=== PATIENT | male | born 1940 | race Caucasian/White ===

== ENCOUNTER 2021-10-24 10:39 | Day surgery (SDC) | payer MEDICARE, OTHER ==
[2021-10-20 15:04] LABS: CLARITY,URINE CLEAR (Clear); COLOR,URINE YELLOW (Yellow); GLUCOSE, URINE NEGATIVE (Neg); KETONES,URINE NEGATIVE (Neg); LEUKOCYTE ESTERASE ,URINE NEGATIVE (Neg); NITRITES, URINE NEGATIVE (Neg); OCCULT BLOOD,URINE NEGATIVE (Neg); PROTEIN,URINE NEGATIVE (Neg); UROBILINOGEN,URINE 0.2 E.U/dL (0.2-1.0)
[2021-10-20 15:05] LABS: BASOPHILS # (AUTO) 0.1 X10'3 (0-0.2); BASOPHILS % (AUTO) 1.3 % (0-1); EOSINOPHILS # (AUTO) 0.3 X10'3 (0-0.9); EOSINOPHILS % (AUTO) 4.4 % (0-6); LYMPHOCYTES % (AUTO) 16.1 % (21-51); MEAN CORPUSCULAR HGB CONC 33.4 g/dL (33.0-36.5); MEAN CORPUSCULAR VOLUME 98.8 FL (78-98); MEAN PLATELET VOLUME 8.8 FL (7.4-10.4); MONOCYTES # (AUTO) 0.5 X10'3 (0-0.9); MONOCYTES % (AUTO) 8.5 % (2-12); NEUTROPHILS # (AUTO) 4.2 X10'3 (1.8-7.7); NEUTROPHILS % (AUTO) 69.7 % (42-75); PRE OP PLATELET COUNT 176 X10'3 (140-440); RED BLOOD COUNT 2.98 X10'6 (4.70-6.10); RED CELL DISTRIBUTION WIDTH 11.9 % (11.5-14.5)
[2021-10-20 15:07] LABS: UA COLLECTION TYPE CLN CATCH MIDSTREAM
[2021-10-20 15:10] LABS: PRE OP HEMATOCRIT 29.4 % (42.0-52.0); PRE OP HEMOGLOBIN 9.8 g/dL (14.0-17.9)
[2021-10-20 15:23] LABS: ALBUMIN 3.7 G/DL (3.4-5.0); ALBUMIN/GLOBULIN RATIO 1.2 (1.1-1.5); ALKALINE PHOSPHATASE 98 IU/L (46-116); BLOOD UREA NITROGEN 39 MG/DL (7-18); BUN/CREATININE RATIO 23.1 (5.4-32.0); CALCIUM 8.7 MG/DL (8.5-10.1); CHLORIDE 105 MMOL/L (99-107); CREATININE 1.69 MG/DL (0.60-1.10); PRE OP ALT 24 U/L (30-65); PRE OP ANION GAP 5 (8-16); PRE OP AST 21 U/L (10-37); PRE OP BILIRUB, TOTAL 0.5 MG/DL (0.0-1.0); PRE OP GLUCOSE 82 MG/DL (70-104); PRE OP POTASSIUM 4.2 MMOL/L (3.4-5.1); PRE OP SODIUM 145 MMOL/L (135-145); TOTAL CARBON DIOXIDE 34.6 MMOL/L (24-32); TOTAL PROTEIN 6.7 G/DL (6.4-8.2); eGFR 39 ML/MIN
[~2021-10-24] VITALS: Ht 182.9 cm; Wt 70.6 kg
[2021-10-24] VITALS (8 sets, daily range): BP systolic 113–143; BP diastolic 60–81
[~2021-10-24 10:39] MED LIST: ALPR0.5T9 PO; BACL20TA PO; CARB-17 PO; POTASSIUM PO; PRAM0.5T12; SIMV5TAB58 PO; TORS20TA3 PO; cefazolin/dext.iso 2gm/50ml IV ONE; famotidine 20mg tablet PO ONE; ringers solution, lacted 1,000 ML IV SCH
[2021-10-24] MEDS ORDERED: hydrALAZINE 20mg/ml inj. IV PRN (13:25)
[2021-10-24] MEDS ORDERED: ondansetron/PF 4mg/2ml inj IV PRN (13:25)
[2021-10-24] MEDS ORDERED: morphine 2 MG/ML inj. syringe IV PRN (13:25)
[2021-10-24] MEDS ORDERED: labetalol 20mg/4ml (5mg/ml) syringe IV PRN (13:25)
[2021-10-24] MEDS ORDERED: ringers solution, lacted 1,000 ML IV SCH (13:25)
[2021-10-24] MEDS ORDERED: fentaNYL/PF 50MCG/1 ML 2ML syringe IV PRN ×2 (13:25)
[2021-10-24] MEDS ORDERED: morphine 4 MG/ML inj SYRINge IV PRN (13:25)
[2021-10-24] MEDS ORDERED: ROPIVAcaine 0.5% (5mg/ml) 30ml vial ONE ×2 (13:41→13:44)
[2021-10-24] MEDS ORDERED: etomidate 2mg/ml inj. ONE (13:41)
[2021-10-24] MEDS ORDERED: FENTANYL CITRATE/PF 50 MCG/1 ML VIAL ONE (13:42)
[2021-10-24] MEDS ORDERED: midazolam 1 mg/ML 2ml injection ONE (13:43)
[2021-10-24] MEDS ORDERED: bacitracin 15gm ointment TP ONE (13:57)
[2021-10-24] MEDS ORDERED: BUPIVAcaine 0.5% inj/PF 30 ML ONE (13:59)
[2021-10-24] MEDS ORDERED: ondansetron/PF 4mg/2ml inj ONE (14:15)
[2021-10-24] MEDS ORDERED: ePHEDrine 50MG/ML INJ. ONE (14:20)
--- NOTE | 2021-10-24 15:26 | NUR ---
Received from OR via , accompanied by Anesthesiologist DR RIVERA and report given by Anesthesiolgist. AWAKENS TO VOICE. VITALS STABLE DRESSING DI. FELIPE PAIN. RLU ELEVATED. TOES WARM AND PINK.
--- NOTE | 2021-10-24 16:56 | NUR ---
AWAKE AND ORIENTED. VITALS STABLE. DRESSING DI. FELIPE PAIN. HOME WITH HIS AT THIS TIME.
== END 2021-10-24 16:56 | disposition home or self-care (01) ==
LOC: PAS 10:39
PROVIDERS: ATTEND Podiatrist Foot & Ankle Surgery
DX: M20.11 Hallux valgus (acquired), right foot (principal); M20.21 Hallux rigidus, right foot; M19.071 Primary osteoarthritis, right ankle and foot; G89.18 Other acute postprocedural pain; G47.30 Sleep apnea, unspecified; I12.9 Hypertensive chronic kidney disease with stage 1 through stage 4 chronic kidney disease, or unspecified chronic kidney disease; N18.9 Chronic kidney disease, unspecified; Z20.822 Contact with and (suspected) exposure to COVID-19; Z88.2 Allergy status to sulfonamides; Z88.8 Allergy status to other drugs, medicaments and biological substances; Z79.899 Other long term (current) drug therapy; Z98.890 Other specified postprocedural states
CPT/HCPCS: 28750; 36415; 64447; 64450; 73620; 76000; 80053; 81003; 82948; 85025; A6223; C1713; J2250; J2405; J2795; J3010; J3490; J7030; J7120; S0020; U0003; U0005; Z7506; Z7508; Z7512; A4215; A4618; A6449; A7000

== ENCOUNTER 2022-06-15 06:22 | Day surgery (SDC) | payer MEDICARE, OTHER ==
[~2022-06-15] VITALS: Ht 182.9 cm; Wt 74.0 kg
[2022-06-15] VITALS (11 sets, daily range): BP systolic 109–171; BP diastolic 55–96
[~2022-06-15 06:22] MED LIST changes: -cefazolin/dext.iso 2gm/50ml IV ONE; -famotidine 20mg tablet PO ONE; -ringers solution, lacted 1,000 ML IV SCH
[2022-06-15] MEDS ORDERED: normal saline 1,000 ML IV SCH (07:00)
[2022-06-15] MEDS ORDERED: diphenhydrAMINE 25mg capsule PO PRN (07:00)
[2022-06-15] MEDS ORDERED: LOPE2TAB23 PO (07:21)
[2022-06-15] MEDS ORDERED: PNV1TABL7 PO (07:25)
[2022-06-15] MEDS ORDERED: SIME125C77 (07:25)
[2022-06-15] MEDS ORDERED: VITAMIN B12 (07:25)
[2022-06-15] MEDS ORDERED: POTASSIUM PO (07:25)
[2022-06-15] MEDS ORDERED: TETR15DR26 OP (07:25)
[2022-06-15 07:41] LABS: BASOPHILS # (AUTO) 0.1 X10'3 (0-0.2); EOSINOPHILS # (AUTO) 0.3 X10'3 (0-0.9); EOSINOPHILS % (AUTO) 5.7 % (0-6); HEMATOCRIT 30.2 % (42.0-52.0); HEMOGLOBIN 10.3 g/dl (14.0-17.9); LYMPHOCYTES # (AUTO) 1.2 X10'3 (1.1-4.8); LYMPHOCYTES % (AUTO) 20.2 % (21-51); MEAN CORPUSCULAR HEMOGLOBIN 33.1 PG (27.0-31.0); MEAN CORPUSCULAR HGB CONC 34.1 g/dL (33.0-36.5); MEAN CORPUSCULAR VOLUME 97.2 FL (78-98); MEAN PLATELET VOLUME 8.4 FL (7.4-10.4); MONOCYTES # (AUTO) 0.5 X10'3 (0-0.9); MONOCYTES % (AUTO) 8.1 % (2-12); NEUTROPHILS # (AUTO) 3.9 X10'3 (1.8-7.7); PLATELET COUNT 162 X10'3 (140-440); RED BLOOD COUNT 3.11 X10'6 (4.70-6.10); RED CELL DISTRIBUTION WIDTH 12.3 % (11.5-14.5)
[2022-06-15 07:51] LABS: ALBUMIN 3.7 G/DL (3.4-5.0); ANION GAP 8 (8-16); BLOOD UREA NITROGEN 34 MG/DL (7-18); BUN/CREATININE RATIO 26.2 (5.4-32.0); CALCIUM 8.7 MG/DL (8.5-10.1); CHLORIDE 105 MMOL/L (99-107); GLUCOSE 97 MG/DL (70-104); MAGNESIUM 2.4 MG/DL (1.5-2.4); POTASSIUM 4.1 MMOL/L (3.5-5.1); SODIUM 143 MMOL/L (135-145); TOTAL CARBON DIOXIDE 29.7 MMOL/L (24-32); eGFR 53 ML/MIN
[2022-06-15] MEDS ORDERED: nitroGLYCERIN-Tridil 50MG/D5W 0 ML IV ONE (08:02)
[2022-06-15] MEDS ORDERED: midazolam 1 mg/ML 2ml injection ONE ×2 (08:02→09:29)
[2022-06-15] MEDS ORDERED: verapamil 2.5 mg/ml inj IV ONE (08:02)
[2022-06-15] MEDS ORDERED: fentaNYL/PF 50MCG/1 ML 2ML syringe ONE (08:03)
[2022-06-15] MEDS ORDERED: LIDOcaine 1% 30ml preserv. free vial ONE (08:03)
[2022-06-15] MEDS ORDERED: heparin 1,000unit/ml 10ml vial 10 ML ONE (08:03)
[2022-06-15] MEDS ORDERED: iohexol 350 MG/ML 50ML vial IV ONE (08:03)
[2022-06-15] MEDS ORDERED: iohexol 350MG/ML 100ml bottle IV ONE (08:03)
[2022-06-15] MEDS ORDERED: sodium bicarbonate (8.4%) inj. 150 ML in dextrose 5%-water 1,000 ML IV ONE (08:10)
[2022-06-15] MEDS ORDERED: normal saline 1000ml 1,000 ML IV SCH (11:30)
[2022-06-15] MEDS ORDERED: HYDROcodone/acetaminophen 10/325mg tab PO PRN (11:35)
[2022-06-15] MEDS ORDERED: HYDROcodone/acetaminophen 5mg/325mg tablet PO PRN (11:35)
[2022-06-15] MEDS ORDERED: OXAZEpam 15mg capsule PO PRN (11:35)
== END 2022-06-15 14:35 | disposition home or self-care (01) ==
LOC: SSTAY O 06:22
PROVIDERS: ATTEND Internal Medicine Cardiovascular Disease
DX: I25.10 Atherosclerotic heart disease of native coronary artery without angina pectoris (principal); I35.0 Nonrheumatic aortic (valve) stenosis; I45.10 Unspecified right bundle-branch block; I10 Essential (primary) hypertension; E78.5 Hyperlipidemia, unspecified; I27.20 Pulmonary hypertension, unspecified; G35 Multiple sclerosis; G47.30 Sleep apnea, unspecified; Z98.890 Other specified postprocedural states; Z79.899 Other long term (current) drug therapy; Z82.49 Family history of ischemic heart disease and other diseases of the circulatory system
CPT/HCPCS: 36415; 80048; 83735; 85025; 85610; 93005; 93460; 99152; 99153; C1751; C1760; C1769; C1894; J1644; J2250; J3010; J3490; J7030; J7070; Q0163; Q9967; A4615; A5120; A6258

== ENCOUNTER 2022-07-03 11:03 | Outpatient (CLI) | payer MEDICARE, OTHER ==
[~2022-07-03 11:03] MED LIST changes: +LOPE2TAB23 PO; +PNV1TABL7 PO; +SIME125C77; +TETR15DR26 OP; -TORS20TA3 PO; +VITAMIN B12
[2022-07-03 11:35] LABS: BASOPHILS % (AUTO) 0.5 % (0-1); EOSINOPHILS # (AUTO) 0.3 X10'3 (0-0.9); EOSINOPHILS % (AUTO) 4.2 % (0-6); HEMATOCRIT 31.4 % (42.0-52.0); HEMOGLOBIN 10.7 g/dl (14.0-17.9); LYMPHOCYTES # (AUTO) 0.6 X10'3 (1.1-4.8); LYMPHOCYTES % (AUTO) 9.7 % (21-51); MEAN CORPUSCULAR HEMOGLOBIN 33.3 PG (27.0-31.0); MEAN CORPUSCULAR VOLUME 97.8 FL (78-98); MEAN PLATELET VOLUME 8.5 FL (7.4-10.4); MONOCYTES # (AUTO) 0.4 X10'3 (0-0.9); MONOCYTES % (AUTO) 6.7 % (2-12); NEUTROPHILS # (AUTO) 4.7 X10'3 (1.8-7.7); NEUTROPHILS % (AUTO) 78.9 % (42-75); PLATELET COUNT 160 X10'3 (140-440); RED BLOOD COUNT 3.21 X10'6 (4.70-6.10); RED CELL DISTRIBUTION WIDTH 12.6 % (11.5-14.5); WHITE BLOOD COUNT 5.9 X10'3 (4.5-11.0)
[2022-07-03 11:48] LABS: APTT 27 SECONDS (22-32)
[2022-07-03 12:20] LABS: ALANINE AMINOTRANSFERASE 29 U/L (12-78); ALBUMIN 3.7 G/DL (3.4-5.0); ALBUMIN/GLOBULIN RATIO 1.3 (1.1-1.5); ALKALINE PHOSPHATASE 116 IU/L (46-116); ANION GAP 6 (8-16); ASPARTATE AMINO TRANSFERASE 29 U/L (10-37); BILIRUBIN,TOTAL 0.7 MG/DL (0.1-1.0); BLOOD UREA NITROGEN 37 MG/DL (7-18); CHLORIDE 107 MMOL/L (99-107); CREATININE 1.32 MG/DL (0.60-1.10); GLUCOSE 86 MG/DL (70-104); POTASSIUM 4.8 MMOL/L (3.5-5.1); SODIUM 144 MMOL/L (135-145); TOTAL CARBON DIOXIDE 31.1 MMOL/L (24-32); TOTAL PROTEIN 6.5 G/DL (6.4-8.2); eGFR 52 ML/MIN
[2022-07-03] MEDS ORDERED: IODIXANOL 320 MG/ML INFUS..BTL 100ML IV ONE (12:52)
== END 2022-07-03 23:59 | disposition home or self-care (01) ==
LOC: RAD 11:03
PROVIDERS: ATTEND Internal Medicine Cardiovascular Disease
DX: Z01.818 Encounter for other preprocedural examination (principal); I65.23 Occlusion and stenosis of bilateral carotid arteries; I70.0 Atherosclerosis of aorta; R16.0 Hepatomegaly, not elsewhere classified; K80.20 Calculus of gallbladder without cholecystitis without obstruction; K44.9 Diaphragmatic hernia without obstruction or gangrene; I51.7 Cardiomegaly; N40.0 Benign prostatic hyperplasia without lower urinary tract symptoms; M41.85 Other forms of scoliosis, thoracolumbar region; N28.1 Cyst of kidney, acquired; M46.04 Spinal enthesopathy, thoracic region; G20 Parkinson's disease; G35 Multiple sclerosis; I35.0 Nonrheumatic aortic (valve) stenosis; Z87.891 Personal history of nicotine dependence; Z79.899 Other long term (current) drug therapy
CPT/HCPCS: 36415; 71046; 71275; 74174; 80053; 85025; 85610; 85730; 93005; 93880; 94010; 94727; 94729; J3490; Q9967

== ENCOUNTER 2022-08-27 07:43 | Inpatient (IN) | payer MEDICARE, OTHER ==
[2022-08-21 13:50] LABS: CLARITY,URINE CLEAR (Clear); COLOR,URINE STRAW (Yellow); GLUCOSE, URINE NEGATIVE (Neg); KETONES,URINE NEGATIVE (Neg); LEUKOCYTE ESTERASE ,URINE SMALL (Neg); NITRITES, URINE NEGATIVE (Neg); OCCULT BLOOD,URINE NEGATIVE (Neg); PH,URINE 5.5 (4.8-8.0); PROTEIN,URINE NEGATIVE (Neg); UROBILINOGEN,URINE 0.2 E.U/dL (0.2-1.0)
[2022-08-21 14:13] LABS: UA COLLECTION TYPE NON-SPECIFIED
[2022-08-21 14:18] LABS: BACTERIA,URINE FEW /HPF (Neg); HYALINE CASTS 0-3 /LPF (NEGATIVE); MUCUS STRANDS NONE SEEN /LPF (Neg); RBC,URINE 0-2 /HPF (0-2); SQUAMOUS EPITHELIAL CELL,UR NONE SEEN /LPF (FEW)
[2022-08-21 14:33] LABS: BASOPHILS # (AUTO) 0.1 X10'3 (0-0.2); BASOPHILS % (AUTO) 1.1 % (0-1); EOSINOPHILS # (AUTO) 0.3 X10'3 (0-0.9); EOSINOPHILS % (AUTO) 4.8 % (0-6); LYMPHOCYTES # (AUTO) 0.9 X10'3 (1.1-4.8); LYMPHOCYTES % (AUTO) 14.9 % (21-51); MEAN CORPUSCULAR HEMOGLOBIN 33.2 PG (27.0-31.0); MEAN CORPUSCULAR HGB CONC 33.4 g/dL (33.0-36.5); MEAN CORPUSCULAR VOLUME 99.5 FL (78-98); MEAN PLATELET VOLUME 8.2 FL (7.4-10.4); MONOCYTES # (AUTO) 0.5 X10'3 (0-0.9); MONOCYTES % (AUTO) 7.3 % (2-12); NEUTROPHILS # (AUTO) 4.6 X10'3 (1.8-7.7); NEUTROPHILS % (AUTO) 71.9 % (42-75); PRE OP HEMATOCRIT 32.4 % (42.0-52.0); PRE OP PLATELET COUNT 190 X10'3 (140-440); RED BLOOD COUNT 3.25 X10'6 (4.70-6.10); RED CELL DISTRIBUTION WIDTH 12.7 % (11.5-14.5)
[2022-08-21 14:34] LABS: PRE OP PROTIME 10.3 SECONDS (9.0-12.0)
[2022-08-21 14:35] LABS: PRE OP HEMOGLOBIN 10.8 g/dL (14.0-17.9)
[2022-08-21 14:36] LABS: ALBUMIN/GLOBULIN RATIO 1.4 (1.1-1.5); ALKALINE PHOSPHATASE 92 IU/L (46-116); BLOOD UREA NITROGEN 39 MG/DL (7-18); BUN/CREATININE RATIO 28.1 (5.4-32.0); CALCIUM 8.8 MG/DL (8.5-10.1); CHLORIDE 103 MMOL/L (99-107); CREATININE 1.39 MG/DL (0.60-1.10); PRE OP ALT 27 U/L (30-65); PRE OP ANION GAP 6 (8-16); PRE OP AST 40 U/L (10-37); PRE OP BILIRUB, TOTAL 0.4 MG/DL (0.0-1.0); PRE OP GLUCOSE 94 MG/DL (70-104); PRE OP POTASSIUM 4.7 MMOL/L (3.4-5.1); PRE OP SODIUM 141 MMOL/L (135-145); TOTAL CARBON DIOXIDE 32.4 MMOL/L (24-32); TOTAL PROTEIN 6.8 G/DL (6.4-8.2); eGFR 49 ML/MIN
[2022-08-27] VITALS (29 sets, daily range): BP systolic 97–176; BP diastolic 55–107
[~2022-08-27] VITALS: Ht 167.6 cm; Wt 70.3 kg
[2022-08-27] MEDS: nitroPRUSSIDE (NIPRIDE) (200MCG/ML) 100ML Drip IV SCH (05:30)
[2022-08-27] MEDS: phenylephrine inj 50 MG in normal saline 250ml IV solN IV SCH (05:30)
[~2022-08-27 07:43] MED LIST changes: +CYAN100T39 PO; +POTA99TA26 PO; -POTASSIUM PO; -PRAM0.5T12; +PRAM0.5T12 PO; -SIME125C77; +SIME125C77 PO; +TETR15DR26 EACHEYE; -TETR15DR26 OP; -VITAMIN B12; +aspirin 325mg tablet PO ONE; +ceFAZolin inj. 2,000 MG in dextrose 5%-water 100 ML IV ONE; +famotidine 20mg tablet PO ONE; +ondansetron/PF 4mg/2ml inj IV PRN; +protamine sulfate 10mg/ml inj. ONE; +ringers solution, lacted 1,000 ML IV SCH; +vancomycin 1,500 MG in NS 300ml IV soln IV ONE
[2022-08-27] MEDS ORDERED: iohexol 350 MG/ML 50ML vial IV ONE ×2 (10:34→11:58)
[2022-08-27] MEDS ORDERED: verapamil 2.5 mg/ml inj IV ONE (10:34)
[2022-08-27] MEDS ORDERED: heparin 1,000unit/ml 10ml vial 0 ML ONE (10:34)
[2022-08-27] MEDS ORDERED: iohexol 350MG/ML 100ml bottle IV ONE (10:34)
[2022-08-27] MEDS ORDERED: nitroGLYCERIN-Tridil 50MG/D5W 0 ML IV ONE (10:35)
[2022-08-27] MEDS ORDERED: heparin 1,000 UNITS/NS 500ml 1,500 ML ONE (10:35)
[2022-08-27] MEDS ORDERED: LIDOcaine 1% 30ml preserv. free vial ONE (10:36)
[2022-08-27] MEDS ORDERED: fentaNYL/PF 50MCG/1 ML 2ML syringe ONE (10:51)
[2022-08-27] MEDS ORDERED: midazolam 1 mg/ML 2ml injection ONE (10:51)
[2022-08-27] MEDS ORDERED: ALPRAZolam 0.5mg tablet PO PRN (11:10)
[2022-08-27] MEDS ORDERED: propofol inj 20 ML IV ONE ×2 (11:10)
[2022-08-27] MEDS ORDERED: SIMETHICONE 125 MG CAPSULE PO PRN (11:10)
[2022-08-27] MEDS ORDERED: loperamide 2mg capsule PO PRN (11:15)
[2022-08-27] MEDS ORDERED: heparin 1,000unit/ml 10ml vial 10 ML ONE (12:39)
[2022-08-27] MEDS ORDERED: ondansetron/PF 4mg/2ml inj IV PRN ×2 (12:40→13:00)
[2022-08-27] MEDS ORDERED: hydrALAZINE 20mg/ml inj. IV PRN ×2 (12:40→13:00)
[2022-08-27] MEDS ORDERED: acetaminophen 1,000mg/100ml IV 100 ML IV PRN (12:40)
[2022-08-27] MEDS ORDERED: labetalol 20mg/4ml (5mg/ml) syringe IV PRN ×2 (12:40→13:00)
[2022-08-27] MEDS ORDERED: meperidine/PF 25mg/ml syringe IV PRN (12:40)
[2022-08-27] MEDS ORDERED: ringers solution, lacted 1,000 ML IV SCH (12:40)
[2022-08-27] MEDS ORDERED: morphine 2 MG/ML inj. syringe IV PRN (12:40)
[2022-08-27] MEDS ORDERED: HYDROmorphone/PF 0.2 MG/ML SYRINGE IV PRN (12:40)
--- NOTE | 2022-08-27 12:59 | NUR ---
Received from OR via HOSPITAL BED , accompanied by Anesthesiologist DR KUMARI and report given by Anesthesiolgist. PT PRESENTS WITH PIV 20G RIGHT AC, ART LINE LEFT WRIST, RADIAL STOP RIGHT WRIST. PT HAS ORAL AIRWAY IN, MASK 10L, VSS. NEURO CHECK INTACT. DISTAL PULSES BILATERAL PEDAL AND TIBIAL FOUND WITH DOPLER. VSS. Addendum: 08/27/22 at 1334 by Juany Sy RN, RN Amended: Links added.
[2022-08-27] MEDS ORDERED: potassium Cl 40MEQ/270ML bag 250 ML IV PRN (13:00)
[2022-08-27] MEDS ORDERED: potassium CL 10mEq/100ml bag 100 ML IV PRN (13:00)
[2022-08-27] MEDS ORDERED: proCHLORperazine 10 MG/2 ml inj IV PRN (13:00)
[2022-08-27] MEDS ORDERED: docusate sod 100mg capsule PO PRN (13:00)
[2022-08-27] MEDS ORDERED: diphenhydrAMINE 25mg capsule PO PRN (13:00)
[2022-08-27] MEDS ORDERED: pantoprazole 40mg Tablet.DR PO PRN (13:00)
[2022-08-27] MEDS ORDERED: magnesium 2GM in 50ml NS 50 ML IV PRN (13:00)
[2022-08-27] MEDS ORDERED: potassium Cl 20mEq/100mL bag 100 ML IV PRN (13:00)
[2022-08-27] MEDS ORDERED: potassium Cl 40MEQ/1/2NS 520ml 520 ML IV PRN (13:00)
[2022-08-27] MEDS ORDERED: magnesium 4gm in 100ml NS 100 ML IV PRN (13:00)
[2022-08-27] MEDS ORDERED: potassium Cl 20 mEq SR tablet PO PRN (13:00)
--- NOTE | 2022-08-27 13:10 | NUR ---
ORAL AIRWAY REMOVED, PT SPO2 100, 10L MASK. SPO2 TURNED DOWN TO 6L MASK 100%. Addendum: 08/27/22 at 1334 by Juany Sy RN, RN Amended: Links added.
--- NOTE | 2022-08-27 13:25 | NUR ---
PT HAS BILATERAL LOWER EXTREMITY 3+ PITTING EDEMA.
--- NOTE | 2022-08-27 13:34 | NUR ---
AFTER INSPECTION OF ART LINE, I NOTICED BLOOD LEAKING AROUND THE CATHETER AND OPT HAD A HEMATOMA. ART LINE REMOVED PRESURE HELD FOR 5 MINUTES. 2X2 WITH COBAN PLACED. Addendum: 08/27/22 at 1335 by Juany Sy RN, RN Amended: Links added.
--- NOTE | 2022-08-27 13:34 | NUR ---
DR CAMPOVERDE AT BEDSIDE. Addendum: 08/27/22 at 1336 by Juany Guerrero - JAYMIE RN Amended: Links added.
--- NOTE | 2022-08-27 13:37 | NUR ---
POST TAVR EKG, LANE AT BEDSIDE.
[2022-08-27] MEDS: normal saline 1000ml 1,000 ML IV SCH ×2 (13:53→23:00)
--- NOTE | 2022-08-27 15:23 | NUR ---
PT HAS RIGHT WRIST RADIAL STOP. PER [employer] TEST TECHNICIAN AFTER 1ST HOUR REMOVE 3MLS OF AIR. THEN EVERY 15 MINUTES REMOVE 3 MLS OF AIR UNTIL RADIAL STOP IS REMOVED. RADIAL STOP REMOVED WITH NO SIGNS OF BLEEDING. RIGHT WRIST 2X2 PLACED WITH COBAN.
[2022-08-27] MEDS: ceFAZolin 1GM/D5W- ADD-VANTAGE 50 ML IV SCH (15:28)
[2022-08-27] MEDS: pramipexole 0.25mg tablet PO SCH ×2 (15:28→21:11)
--- NOTE | 2022-08-27 16:09 | NUR ---
Report called to receiving nurse CAITLIN COON. PT Transferred via HOSPITAL BED TO ROOM 3013A WITH PT . PT BED IN LOW LOCKED POSITION WITH CALL LIGHT IN REACH. PT HOOKED UP TO DESIREE BARGER. PT GLASSES AND TWO PT Belongings BAGS. SPecial Issues communicated to receiving nurse. Addendum: 08/27/22 at 1615 by Juany Sy RN, RN Amended: Links added.
[2022-08-27] MEDS: sod chloride 0.9% 10ml flush syringe IV SCH (16:30)
[2022-08-27] MEDS: acetaminophen 325mg tablet PO PRN (16:45)
[2022-08-27] MEDS: ALPRAZolam 0.25mg tablet PO PRN (16:45)
[2022-08-27] MEDS: PNV NO.63/IRON,CARBONYL/FA/DHA 1 EACH CAPSULE PO SCH (20:00)
[2022-08-27] MEDS: SIMVASTATIN 5 MG PO SCH (21:00)
[2022-08-27] MEDS: baclofen 10mg tablet PO SCH (21:11)
[2022-08-27] MEDS: vancomycin/NS 1 GM ADD-VANTAGE 250 ML IV SCH (21:12)
[2022-08-28] VITALS (7 sets, daily range): BP systolic 110–142; BP diastolic 56–74
[2022-08-28] MEDS: nitroPRUSSIDE (NIPRIDE) (200MCG/ML) 100ML Drip IV SCH (00:28)
[2022-08-28] MEDS: ceFAZolin 1GM/D5W- ADD-VANTAGE 50 ML IV SCH ×2 (01:06→08:00)
[2022-08-28] MEDS: phenylephrine inj 50 MG in normal saline 250ml IV solN IV SCH (03:38)
[2022-08-28 06:16] LABS: BASOPHILS % (AUTO) 0.4 % (0-1); EOSINOPHILS % (AUTO) 0 % (0-6); HEMATOCRIT 31.9 % (42.0-52.0); HEMOGLOBIN 10.5 g/dl (14.0-17.9); LYMPHOCYTES # (AUTO) 0.3 X10'3 (1.1-4.8); LYMPHOCYTES % (AUTO) 2.6 % (21-51); MEAN CORPUSCULAR HEMOGLOBIN 32.9 PG (27.0-31.0); MEAN CORPUSCULAR HGB CONC 33.1 g/dL (33.0-36.5); MEAN CORPUSCULAR VOLUME 99.6 FL (78-98); MEAN PLATELET VOLUME 8.3 FL (7.4-10.4); MONOCYTES # (AUTO) 0.9 X10'3 (0-0.9); MONOCYTES % (AUTO) 7.7 % (2-12); NEUTROPHILS # (AUTO) 10.6 X10'3 (1.8-7.7); NEUTROPHILS % (AUTO) 89.3 % (42-75); PLATELET COUNT 150 X10'3 (140-440); RED CELL DISTRIBUTION WIDTH 12.8 % (11.5-14.5); WHITE BLOOD COUNT 11.9 X10'3 (4.5-11.0)
[2022-08-28 06:39] LABS: ALANINE AMINOTRANSFERASE 51 U/L (12-78); ALBUMIN 3.7 G/DL (3.4-5.0); ALBUMIN/GLOBULIN RATIO 1.3 (1.1-1.5); ALKALINE PHOSPHATASE 92 IU/L (46-116); ANION GAP 9 (8-16); ASPARTATE AMINO TRANSFERASE 46 U/L (10-37); BILIRUBIN,TOTAL 0.6 MG/DL (0.1-1.0); BLOOD UREA NITROGEN 32 MG/DL (7-18); BUN/CREATININE RATIO 20.3 (5.4-32.0); CALCIUM 8.7 MG/DL (8.5-10.1); CHLORIDE 103 MMOL/L (99-107); CREATININE 1.58 MG/DL (0.60-1.10); GLUCOSE 148 MG/DL (70-104); MAGNESIUM 2.2 MG/DL (1.5-2.4); POTASSIUM 4.5 MMOL/L (3.5-5.1); SODIUM 142 MMOL/L (135-145); TOTAL CARBON DIOXIDE 29.9 MMOL/L (24-32); TOTAL PROTEIN 6.5 G/DL (6.4-8.2); eGFR 42 ML/MIN
[2022-08-28] MEDS: vancomycin/NS 1 GM ADD-VANTAGE 250 ML IV SCH (08:00)
[2022-08-28] MEDS: PEG OP SCH (08:00)
[2022-08-28] MEDS: sod chloride 0.9% 10ml flush syringe IV SCH ×4 (08:00→23:03)
[2022-08-28] MEDS: DEXT OP SCH (08:00)
[2022-08-28] MEDS: [UNRECOGNIZED DRUG - OTHER] OP SCH (08:00)
[2022-08-28] MEDS: TETRAHYDRZ OP SCH (08:00)
[2022-08-28] MEDS: POTASSIUM GLUCONATE 99 MG PO SCH (08:00)
[2022-08-28] MEDS: PNV NO.63/IRON,CARBONYL/FA/DHA 1 EACH CAPSULE PO SCH ×2 (08:00→19:42)
[2022-08-28] MEDS: pramipexole 0.25mg tablet PO SCH ×3 (08:06→19:42)
[2022-08-28] MEDS: baclofen 10mg tablet PO SCH ×2 (08:06→19:43)
[2022-08-28] MEDS: normal saline 1000ml 1,000 ML IV SCH ×2 (09:00→19:00)
[2022-08-28] MEDS ORDERED: simethicone 125mg capsule PO PRN (09:23)
[2022-08-28] MEDS ORDERED: ASPI-1265 PO (10:07)
[2022-08-28] MEDS: SIMVASTATIN 5 MG PO SCH (19:57)
[2022-08-29 02:00] VITALS: BP 137/74
[2022-08-29] MEDS: normal saline 1000ml 1,000 ML IV SCH ×2 (05:00→15:00)
[2022-08-29 07:23] VITALS: BP 130/75
[2022-08-29] MEDS: sod chloride 0.9% 10ml flush syringe IV SCH ×3 (08:00→23:26)
[2022-08-29] MEDS: DEXT OP SCH (08:00)
[2022-08-29] MEDS: [UNRECOGNIZED DRUG - OTHER] OP SCH (08:00)
[2022-08-29] MEDS: TETRAHYDRZ OP SCH (08:00)
[2022-08-29] MEDS: PEG OP SCH (08:00)
[2022-08-29] MEDS: POTASSIUM GLUCONATE 99 MG PO SCH (08:00)
[2022-08-29] MEDS: baclofen 10mg tablet PO SCH ×2 (08:34→20:02)
[2022-08-29] MEDS: pramipexole 0.25mg tablet PO SCH ×3 (08:34→20:02)
[2022-08-29] MEDS: PNV NO.63/IRON,CARBONYL/FA/DHA 1 EACH CAPSULE PO SCH ×2 (08:38→20:01)
[2022-08-29] MEDS ORDERED: PERFLUTREN PROTEIN-A MICROSPHR (Optison) 0.22 MG/ML 3ML VIAL IV ONE (09:50)
[2022-08-29 11:30] VITALS: BP 145/80
--- NOTE | 2022-08-29 11:56 | NUR ---
Pt received an echo and the results show slightly increased pericardial effusion. Both MD and cardio suggest holding pt another day and repeating echo tomorrow morning. If results are good plan for DC then.
[2022-08-29 15:09] VITALS: BP 119/73
[2022-08-29 18:00] VITALS: BP 115/67
[2022-08-29] MEDS: SIMVASTATIN 5 MG PO SCH (20:03)
[2022-08-29 22:00] VITALS: BP 132/65
[2022-08-30] MEDS: normal saline 1000ml 1,000 ML IV SCH ×3 (00:55→21:00)
[2022-08-30] MEDS: ALPRAZolam 0.25mg tablet PO PRN (02:04)
[2022-08-30 02:19] VITALS: BP 154/77
--- NOTE | 2022-08-30 04:44 | NUR ---
I showed the ekg to Dr. Mcneil to review since the telephone station repairer was concerned with the cardiac strip on patient. Dr. Mcneil ER recommended a trop drawn and have a trop done. The pt's nurse is calling for order.
[2022-08-30 07:00] VITALS: BP 145/75
--- NOTE | 2022-08-30 07:14 | NUR ---
Lab came back with a critical value on Troponin at a [address]. I [address] Schaffer's cell phone and left a voicemail to notify. Will continue to monitor patient.
[2022-08-30] MEDS: sod chloride 0.9% 10ml flush syringe IV SCH ×2 (08:00→16:31)
[2022-08-30] MEDS: baclofen 10mg tablet PO SCH ×2 (08:07→20:53)
[2022-08-30] MEDS: PNV NO.63/IRON,CARBONYL/FA/DHA 1 EACH CAPSULE PO SCH ×2 (08:07→20:53)
[2022-08-30] MEDS: pramipexole 0.25mg tablet PO SCH ×3 (08:08→20:53)
[2022-08-30] MEDS ORDERED: LIDOcaine 1% 30ml preserv. free vial ONE (08:38)
[2022-08-30] MEDS ORDERED: midazolam 1 mg/ML 2ml injection ONE (08:38)
[2022-08-30] MEDS ORDERED: fentaNYL/PF 50MCG/1 ML 2ML syringe ONE (08:38)
[2022-08-30] MEDS ORDERED: PERFLUTREN PROTEIN-A MICROSPHR (Optison) 0.22 MG/ML 3ML VIAL IV ONE (10:10)
[2022-08-30 11:00] VITALS: BP 139/62
[2022-08-30 11:16] LABS: TOTAL PROTEIN,BODY FLUID 4.7 G/DL
[2022-08-30 16:07] VITALS: BP 115/55
[2022-08-30 18:00] VITALS: BP 114/48
[2022-08-30] MEDS: acetaminophen 325mg tablet PO PRN (20:53)
[2022-08-30 21:00] VITALS: BP 113/57
[2022-08-31] MEDS: sod chloride 0.9% 10ml flush syringe IV SCH ×2 (00:18→08:22)
[2022-08-31 06:00] VITALS: BP_SYST 124; BP_SYST 150; BP_DIAS 52; BP_DIAS 90
[2022-08-31] MEDS: normal saline 1000ml 1,000 ML IV SCH (07:00)
[2022-08-31] MEDS: baclofen 10mg tablet PO SCH (08:18)
[2022-08-31] MEDS: pramipexole 0.25mg tablet PO SCH ×2 (08:18→13:11)
[2022-08-31] MEDS: PNV NO.63/IRON,CARBONYL/FA/DHA 1 EACH CAPSULE PO SCH (08:18)
[2022-08-31 09:17] LABS: BASOPHILS % (AUTO) 0.4 % (0-1); EOSINOPHILS # (AUTO) 0.1 X10'3 (0-0.9); EOSINOPHILS % (AUTO) 1.4 % (0-6); HEMATOCRIT 30.8 % (42.0-52.0); HEMOGLOBIN 10.1 g/dl (14.0-17.9); LYMPHOCYTES # (AUTO) 0.8 X10'3 (1.1-4.8); LYMPHOCYTES % (AUTO) 10.8 % (21-51); MEAN CORPUSCULAR HEMOGLOBIN 33.1 PG (27.0-31.0); MEAN CORPUSCULAR HGB CONC 32.7 g/dL (33.0-36.5); MEAN CORPUSCULAR VOLUME 101.2 FL (78-98); MEAN PLATELET VOLUME 8.7 FL (7.4-10.4); MONOCYTES # (AUTO) 0.4 X10'3 (0-0.9); MONOCYTES % (AUTO) 5.1 % (2-12); NEUTROPHILS # (AUTO) 5.8 X10'3 (1.8-7.7); NEUTROPHILS % (AUTO) 82.3 % (42-75); PLATELET COUNT 92 X10'3 (140-440); RED BLOOD COUNT 3.04 X10'6 (4.70-6.10); RED CELL DISTRIBUTION WIDTH 12.6 % (11.5-14.5); WHITE BLOOD COUNT 7.1 X10'3 (4.5-11.0)
[2022-08-31 09:49] LABS: ALBUMIN 2.7 G/DL (3.4-5.0); ANION GAP 6 (8-16); BLOOD UREA NITROGEN 41 MG/DL (7-18); BUN/CREATININE RATIO 28.1 (5.4-32.0); CALCIUM 8.1 MG/DL (8.5-10.1); CHLORIDE 104 MMOL/L (99-107); CREATININE 1.46 MG/DL (0.60-1.10); GLUCOSE 139 MG/DL (70-104); POTASSIUM 3.5 MMOL/L (3.5-5.1); SODIUM 141 MMOL/L (135-145); TOTAL CARBON DIOXIDE 30.8 MMOL/L (24-32); eGFR 46 ML/MIN
[2022-08-31 10:30] VITALS: BP 106/59
--- NOTE | 2022-08-31 13:24 | NUR ---
Called Sharron, deirdre/c rola rec'd. She will be on her way. Should be here in about 45 min.
[2022-08-31 14:30] VITALS: BP 108/58
--- NOTE | 2022-08-31 16:08 | NUR ---
Pt stable for d/c per md orders. Rev'd all d/c ppwk with patient and his . All questions, comments and questions were answered at this time. Reiterated the importance of dr wasserman. All personal belongings were packed up and sent with patient. Model card with pamphlet was also given to patient. PIV was removed, tele removed - pt tolerated well. Pt was able to get dressed and transfer to w/c with wifes help. Pt was wheeled out by nursing staff to private vehicle.
== END 2022-08-31 15:54 | disposition home or self-care (01) | DRG 266 ==
LOC: PAS IN 07:43 → PCU 3S 16:31
PROVIDERS: ADMIT Internal Medicine Cardiovascular Disease; ATTEND Internal Medicine Cardiovascular Disease
PROC: 027F3ZZ Dilation of Aortic Valve, Percutaneous Approach (ICD-10-PCS; 2022-08-27)
PROC: B41D1ZZ Fluoroscopy of Aorta and Bilateral Lower Extremity Arteries using Low Osmolar Contrast (ICD-10-PCS; 2022-08-27)
PROC: 02RF38Z Replacement of Aortic Valve with Zooplastic Tissue, Percutaneous Approach (ICD-10-PCS; principal; 2022-08-27 10:49)
PROC: 0W9D3ZX Drainage of Pericardial Cavity, Percutaneous Approach, Diagnostic (ICD-10-PCS; 2022-08-30)
DX: I35.0 Nonrheumatic aortic (valve) stenosis (principal); Z00.6 Encounter for examination for normal comparison and control in clinical research program; I50.23 Acute on chronic systolic (congestive) heart failure; I31.39 Other pericardial effusion (noninflammatory); I25.10 Atherosclerotic heart disease of native coronary artery without angina pectoris; E78.5 Hyperlipidemia, unspecified; I11.0 Hypertensive heart disease with heart failure; G47.33 Obstructive sleep apnea (adult) (pediatric); G35 Multiple sclerosis
CPT/HCPCS: 36415; 71045; 71046; 80048; 80053; 81001; 82948; 83615; 83735; 83880; 84157; 84484; 85025; 85347; 85610; 85730; 86885; 86900; 86901; 86920; 87081; 87088; 93005; 93308; A4349; A4615; A4618; A4620; A6258; A6449; G0378; J0690; J1644; J2250; J2370; J2405; J2704; J2720; J3010; J3370; J3490; J7030; J7040; J7050; J7060; J7120; Q0163; Q9967

== ENCOUNTER 2022-09-23 12:59 | Outpatient (CLI) | payer MEDICARE, OTHER ==
[~2022-09-23 12:59] MED LIST changes: +ASPI-1265 PO; -aspirin 325mg tablet PO ONE; -ceFAZolin inj. 2,000 MG in dextrose 5%-water 100 ML IV ONE; -famotidine 20mg tablet PO ONE; -ondansetron/PF 4mg/2ml inj IV PRN; -protamine sulfate 10mg/ml inj. ONE; -ringers solution, lacted 1,000 ML IV SCH; -vancomycin 1,500 MG in NS 300ml IV soln IV ONE
== END 2022-09-23 23:59 | disposition home or self-care (01) ==
LOC: CARD DIAG 12:59
PROVIDERS: ATTEND Internal Medicine Cardiovascular Disease
DX: I08.1 Rheumatic disorders of both mitral and tricuspid valves (principal); Z48.812 Encounter for surgical aftercare following surgery on the circulatory system; Z95.2 Presence of prosthetic heart valve
CPT/HCPCS: 93306

== ENCOUNTER 2022-09-24 11:19 | Outpatient (CLI) | payer MEDICARE, OTHER | END 2022-09-24 23:59 | disposition home or self-care (01) | LOC: TAVR 11:19 | PROVIDERS: ATTEND Internal Medicine Cardiovascular Disease | DX: Z48.812 Encounter for surgical aftercare following surgery on the circulatory system (principal); I35.0 Nonrheumatic aortic (valve) stenosis; I51.7 Cardiomegaly; I45.10 Unspecified right bundle-branch block; Z95.2 Presence of prosthetic heart valve | CPT/HCPCS: 93005 ==

== ENCOUNTER 2024-12-21 21:24 | Inpatient (IN) | payer MEDICARE, OTHER ==
[~2024-12-21] VITALS: Ht 177.8 cm; Wt 58.7 kg
[~2024-12-21 21:24] MED LIST changes: -ASPI-1265 PO
[2024-12-21 23:45] VITALS: BP 114/60; PULSE 70; RESP 14; TEMP 97.2; O2SAT 97
[2024-12-22] VITALS (7 sets, daily range): BP systolic 97–131; BP diastolic 52–78; PULSE 74–94; RESP 16–21; TEMP 97.3–97.6; O2SAT 91–96
[2024-12-22] MEDS ORDERED: magnesium Cl slow-release 64mg tablet PO PRN (01:20)
[2024-12-22] MEDS ORDERED: magnesium sulf-water 4G/100mL 100 ML IV PRN (01:20)
[2024-12-22] MEDS ORDERED: magnesium sulf-water 2g/50mL 50 ML IV PRN (01:20)
[2024-12-22] MEDS ORDERED: potassium Cl 20 mEq SR tablet PO PRN ×2 (01:20)
[2024-12-22] MEDS ORDERED: acetaminophen 325mg tablet PO PRN (01:20)
[2024-12-22] MEDS ORDERED: ondansetron/PF 4mg/2ml inj IV PRN (01:20)
[2024-12-22] MEDS ORDERED: magnesium hydroxide 30ml (MOM) UD suspension PO PRN (01:20)
[2024-12-22] MEDS ORDERED: mag hydrox/Alum hydrox/simeth 30ml oral suspension PO PRN (01:20)
[2024-12-22] MEDS ORDERED: potassium Cl 40MEQ/1/2NS 520ml 520 ML IV PRN (01:20)
[2024-12-22] MEDS: normal saline 1000ml 1,000 ML IV SCH (01:20)
--- NOTE | 2024-12-22 03:09 | HISTORY AND PHYSICAL-Residence ---
History & Physical Providers to CC Resident Creating Document: PRABHJOT THORNTON, RES ~ History of Present Illness Primary Medical Doctor: PCP: Patient does not know Reason for Admit\Complaint: Fever History of Present Illness 84-year-old male patient with past medical history of chronic right hip ulcer wound, hypertension, multiple sclerosis, heart valve replacement five years ago, [place] [facility] [place] of fever sensation. The patient reports that approximately one week ago he noticed subjective fever reason for which his took him to the hospital. Upon arrival to the other facility the patient was admitted with bacteremia, blood cultures revealed Gram-positive cocci in 2/2 samples, specifically identified as Streptococcus species. Vancomycin was initially started but discontinued once the organism was identified, and the patient was continued on Zosyn. The patient also has a an open wound of right hip, the right hip wound was a significant concern due to potential osteomyelitis prompting an MRI to further evaluate the underlying bone involvement coming back positive for osteomyelitis. The patient also had a urinary tract infection using nine during the at home without chronic Thompson catheter use. Initial urinalysis shows signed of infection, and a urine culture was in process during the admission, the antibiotics administered for bacteremia also covered UTI pathogens. The patient exhibited signs of sepsis including elevated white blood cell count, tachycardia, bacteremia and UTI identified as the possible source. The patient has been followed by as outpatient. Echocardiogram from the time of aortic valve replacement with a prosthetic valve in July 2023 showed an ejection fraction of 55% post surgery. The patient was recommended for lifelong endocarditis prophylaxis, however appears to be non adherent with this regimen. The patient was transferred for further management of possible endocarditis. The patient currently does not walk, he mentioned that he has been using wheelchair for approximately two years Allergies: Coded Allergies: Sulfa (Sulfonamide Antibiotics) (Unverified Allergy, Intermediate, HIVES, 10/23/21) adhesive (Unverified Allergy, Mild, SKIN IRRITATION, 05/22/21) Uncoded Allergies: ANTIHISTAMINES (Allergy, Mild, SKIN IRRITATION, 05/22/21) Home Medications Home Medications Active Reported Potassium (Potassium Gluconate) 99 Mg Tablet 1 Tab PO DAILY Vitamin B-12 (Cyanocobalamin) 100 Mcg Tablet 1 Tab PO DAILY Eye Drops (Tetrahydrz/Dext 70/Peg 400/Pvp) 15 Ml Drops 1 Drop EACHEYE DAILY Complete Caplet (Pnv Cmb#21/Iron/Folic Acid) 1 Each Tablet 1 Each PO BID Simethicone 125 Mg Capsule 1 Cap PO DAILY PRN Anti-Diarrheal (Loperamide HCl) 2 Mg Tablet 2 Mg PO DAILY PRN Baclofen 20 Mg Tablet 1 Tab PO BID Pramipexole Dihydrochloride (Pramipexole Di-Hcl) 0.5 Mg Tablet 1 Tab PO TID Carbidopa-Levodopa 25-250 Tab (Carbidopa/Levodopa) 1 Each Tablet 1 Tab PO BID Alprazolam 0.5 Mg Tablet 1 Tab PO BID PRN Zocor* (Simvastatin) 5 Mg Tablet 1 Tab PO HS Past Medical History Past Medical History Right hip ulcer wound. Hypertension. Multiple sclerosis for about 20 years. Heart valve replacement five years ago. Past Surgical History Surgical History Comment Heart valve replacement five years ago. Past Social History Smoking: Non-Smoker Alcohol Use: None Drug Use: None Lives with: Spouse Lives In: Home Occupation: disabled ROS All Other Systems: Reviewed and Negative Exam Vitals: Vital Signs Date Time Temp Pulse Resp B/P (MAP) Pulse Ox O2 Delivery O2 Flow Rate FiO2 12/22/24 02:00 97.6 74 16 98/56 (70) 96 Room Air Physical exam: General: Cachectic, well alert, well oriented, not confused, not agitated, not in acute distress, well cooperated during the physical. HEENT: Conjunctive are pink, sclerae clear, no icterus, pupil is equal in both s ides, reactive to light, no ear discharge, no pharyngeal erythema or an edema. Neck: Supple, no JVD, no lymphadenopathy and thyromegaly. Chest: Equal air entry on both lungs, no additional sounds no rhonchi no wheezing at the moment. Cardiovascular: S1-S2 regular sinus rhythm and, regular rate, presence of diastolic click. Abdomen: No visible peristalsis, Bowel sounds present on auscultation, soft, nontender, no guarding, no rigidity Extremities: Lower extremities in flexion position, no pitting edema bila terally, capillary refill intact, peripheral pulsations are intact on both sides Central Nervous System: Sensory preserved in bilateral lower extremities and upper extremities, strength 1/5 in bilateral lower extremities, strength 5/5 in upper extremities, could move all 4 extremities, 3+ deep tendon reflexes radial and brachial in bilateral upper extremities. Musculoskeletal: Back lordosis. Skin: Presence of ulcer at the level of the right hip 4 x 4 cm. Advance Care Planning Advanced Care plannin - 30 Minutes (I spent a total of 17 minutes on reviewing various resuscitative measures/ACP with the patient at the time of admission. The patient has decided on a full code status.) Additional Plan Assessment and plan: 84-year-old male patient came [place] the hospital [place] [facility] [place] of sepsis with possible prosthetic valve involvement. Sepsis: Chronic wound ulcer: Osteomyelitis: Possible bioprosthetic valve involvement: 84-year-old male patient came to the hospital for further management of sepsis with possible prosthetic valve involvement. Sepsis criteria from the other facility: WBC more than 12, tachycardia, pre sence of source of infection. MRI at the other facility: The constellation of MRI findings typically of osteomyelitis involving the right greater trochanter. This is adjacent to small ulcer crater within the overlying subcutaneous soft tissues. There is no abscess or other drainable fluid collection person at this time. There is nonspecific edematous change throughout the bilateral pelvic musculature. This appearance may be secondary to longstanding spasms and contracture. Nonspecific myositis call has a similar appearance. CBC at the other facility: WBC 12.2, neutrophils 89. Blood culture and ER facility correlated on 12/18/2024: Organisms: Streptococcus species. Follow-up echocardiogram. Follow-up MRSA. Zosyn IV t.i.d. Culturelle 99905 mmu b.i.d. Infectious disease consult in a.m. Cardiology consult in a.m. Acute kidney injury likely secondary to renal tubular stasis: Creatinine 1.42, GFR 47, BUN/creatinine ratio 29.6. Follow-up urine lytes. NS at 80 mL/hour. Normocytic normochromic anemia: Hemoglobin 8.7, MCV 87.2. Follow-up iron studies. Transfuse if hemoglobin levels dropped below seven. Urinary tract infection: Urinalysis at the other facility: Positive for UTI. The patient is currently on Zosyn. Hypertension: We will hold blood pressure medications due to soft blood pressure. Multiple sclerosis: Carbidopa/levodopa, pramipexole and baclofen to be continued after med reconc iliation. Code status: Full code DVT prophylaxis: Heparin Analgesia/sedation: [place] Line/tube: PIV GI prophylaxis: None Nutrition: Heart healthy diet PT: Ordered Prognosis: Guarded Disposition: The patient will be admitted to PCU with telemetry. Prabhjot Conroy Internal Medicine Resident [facility] Attestation Discussed and seen with resident team Spent 35 minutes in care Date of Service: December 22, 2024 Billing Provider: CHRIS SLAUGHTER MD, FRANCO LUIS, [facility] December 22, 2024 03:09 CHRIS SLAUGHTER MD December 22, 2024 06:19
[2024-12-22 04:19] LABS: BASOPHILS # (AUTO) 0.1 X10'3 (0-0.2); BASOPHILS % (AUTO) 0.6 % (0-1); EOSINOPHILS # (AUTO) 0.2 X10'3 (0-0.9); EOSINOPHILS % (AUTO) 2.3 % (0-6); HEMOGLOBIN 8.7 g/dl (14.0-17.9); LYMPHOCYTES # (AUTO) 0.8 X10'3 (1.1-4.8); LYMPHOCYTES % (AUTO) 7.2 % (21-51); MEAN CORPUSCULAR HEMOGLOBIN 28.1 PG (27.0-31.0); MEAN CORPUSCULAR HGB CONC 32.2 g/dL (33.0-36.5); MEAN CORPUSCULAR VOLUME 87.2 FL (78-98); MONOCYTES # (AUTO) 0.5 X10'3 (0-0.9); MONOCYTES % (AUTO) 5.1 % (2-12); NEUTROPHILS # (AUTO) 8.9 X10'3 (1.8-7.7); NEUTROPHILS % (AUTO) 84.8 % (42-75); PLATELET COUNT 287 X10'3 (140-440); WHITE BLOOD COUNT 10.5 X10'3 (4.5-11.0)
[2024-12-22 04:32] LABS: ALBUMIN 2.3 G/DL (3.4-5.0); ALBUMIN/GLOBULIN RATIO 0.6 (1.1-1.5); ALKALINE PHOSPHATASE 105 IU/L (46-116); ANION GAP 9 (8-16); ASPARTATE AMINO TRANSFERASE 34 U/L (10-37); BILIRUBIN,TOTAL 0.4 MG/DL (0.1-1.0); BLOOD UREA NITROGEN 42 MG/DL (7-18); BUN/CREATININE RATIO 29.6 (10.0-20.0); C-REACTIVE PROTEIN 7.48 MG/DL (0.0-0.5); CALCIUM 8.5 MG/DL (8.5-10.1); CHLORIDE 107 MMOL/L (99-107); CREATININE 1.42 MG/DL (0.60-1.10); GLUCOSE 114 MG/DL (70-104); MAGNESIUM 2.5 MG/DL (1.5-2.4); POTASSIUM 4.1 MMOL/L (3.5-5.1); SODIUM 145 MMOL/L (135-145); TOTAL PROTEIN 6.2 G/DL (6.4-8.2); eGFR 47 ML/MIN
[2024-12-22 04:33] LABS: ALANINE AMINOTRANSFERASE < 6 U/L (12-78)
[2024-12-22 05:03] LABS: HEMOGLOBIN A1C 4.6 % (4.5-6.2)
[2024-12-22] MEDS ORDERED: HYDROcodone/acetaminophen 5mg/325mg tablet PO PRN (05:50)
[2024-12-22] MEDS: lactobacillus rhamnosus 10,000 MMU CELLS/CAPSULE PO SCH (05:55)
[2024-12-22] MEDS: piperacillin/tazo 3.375gm/50ml 50 ML IV SCH (05:55)
[2024-12-22 07:49] LABS: % IRON SATURATION 15 % (11-46); IRON 27 UG/DL (53-167); TOTAL IRON BINDING CAPACITY 179 UG/DL (259-388)
[2024-12-22] MEDS ORDERED: lactobacillus rhamnosus 10,000 MMU CELLS/CAPSULE PO SCH (08:00)
[2024-12-22] MEDS: K and/or MAG REPLACEMENT MC SCH (08:00)
[2024-12-22] MEDS: docusate sod 100mg capsule PO SCH (08:11)
[2024-12-22] MEDS: heparin, porcine 5000 units/ml vial SQ SCH (08:13)
--- NOTE | 2024-12-22 13:15 | PROGRESS NOTE ---
Daily Progress Note Providers to CC ~ chief complaint, generalized weakness Central Line/PICC still needed: No Thompson-Non Protocol Thompson Indications Met/Not Met: F/C Indications Not Met Antibiotic Timeout Antibiotic Ordered?: Yes MRSA Education MRSA Education Provided to pt: Yes Subjective As above Objective Vital Signs Date Time Temp Pulse Resp B/P (MAP) Pulse Ox O2 Delivery O2 Flow Rate FiO2 12/22/24 11:00 97.5 94 17 122/66 (84) 92 Room Air Vital signs, stable ,afebrile. Pulse Oximetry reflects adequate oxygenation. General: well developed, well nourished. Awake , alert, and oriented x4, resting comfortably in the bed, in no acute distress . Skin: Warm, dry, no pallor, no rash or petechiae. Extensive decubitus noticed on the back HEENT: Atraumatic, normocephalic, EOMI, anicteric sclera B; pink conjunctiva; PERRLA, normal oropharynx, moist oral and nasal mucosa. Tympanic membrane , nose , throat clear. Neck: Trachea midline. Supple, full range of motion, no JVD, bruit , hepatojugular reflex , lymphadenopathy or masses, or other lesions Cardiac: Regular rhythm, regular rate no murmurs, rubs, or gallops. Normal S1 and S2, no S3 noticed. PMI is normal. Respiratory: Equal breath sounds bilaterally, no tachypnea; lungs clear to auscultation bilaterally, no wheezing ,rub or rales, or crackles. Chest wall is symmetric and without deformity. No signs of trauma. Chest wall is nontender. No signs of respiratory distress. Resonance is normal upon percussion bilaterally. Gastrointestinal: Abdomen symmetric, non-distended, soft, non-tender, normal bowel sounds x4 quadrant, normoactive, no hepatosplenomegaly , no masses , no bruit, no flank pain bilaterally. No voluntary guarding, rebound, or rigidity. No tenderness to percussion. No pulsatile masses. Equal femoral pulses. No Leiva's sign or McBurney point tenderness. Back; no CVA tenderness bilaterally, no deformities. Neck and back are without deformity as well. No tenderness noted on palpation of the spinous processes. Spinous processes are midline. Cervical, thoracic, and lumbar paraspinal muscles are not tender and are without spasm. : normal external genitalia, without lesions, swelling, masses or tenderness. Musculoskeletal: Extremities, normal range of motion, non-tender, muscle strength 5/5 x 4. Negative Homans signs bilaterally on lower extremity. Distal pulses full symmetrical, no clubbing, cyanosis , edema. Neurological: Speech is clear, alert, and oriented x 4. No motor or sensory deficit, deep tendon reflexes normal, cerebellar intact. Cranial nerves II-XII intact. Psych: Alert and or appropriate, normal affect. Vascular: Good distal pulses, which are equal x4; capillary refill less than 2 seconds. Lymphatic, no lymphadenopathy. Result Diagram: 12/22/248 12/22/24 0358 Problem\Assessment\Plan Assessment and plan: 68-year-old male patient came to the hospital with chief complaint of shortness of breath, associated chest pain. Acute on chronic hypoxemic respiratory failure: Acute exacerbation of COPD: Noncompliance: The patient came to the hospital with chief complaint of shortness of breath. The patient is actively smoking cigarettes and marijuana. Echocardiogram on 12/05/2024: Dilated LV size and mildly reduced function. Moderate concentric hypertrophy. Multisegmental wall motion abnormalities noted. LVEF is 50-55%. RV is mildly dilated in size with normal function. Left atrium is moderately dilated. Trileaflet AV appears mildly sclerotic without stenosis or insufficiency. Moderate MV annular calcification (especially posteriorly) without significant stenosis. Moderate regurgitation. TV appears structurally normal with trace regurgitation. Normal pericardium. No effusion. Follow-up lipid panel. Troponin levels [id number]. The patient is currently on BiPAP. Methylprednisolone 125 mg once. Methylprednisolone 60 mg IV t.i.d. The patient received ceftriaxone at the other facility. Second dose of ceftriaxone 1 g tomorrow. Zithromax 500 mg IV daily. Culturelle 38011 mmu b.i.d. DuoNebs q.2h p.r.n. DuoNebs q.4h scheduled. NSTEMI: The patient also complained of chest pain, pressure type, radiation to the left upper arm. The patient was admitted one month ago with similar symptoms. At that time the patient declined coronary angiogram. Currently the patient willing to undergo the procedure. Troponin levels: [id number]. Aspirin 81 mg daily. Atorvastatin 80 mg daily. Carvedilol 3.125 mg b.i.d. Heparin drip. Cardiology consult in a.m. S/P TAVR, r/o endocarditis Normocytic hypochromic anemia: Possible GI bleed: Hemoglobin 11.9, hematocrit 36.7. MCV 92.6. Hemoccult is positive. The patient was reported with bright red bowel movement which initially prompted to stop heparin drip. H&H was monitored remaining stable. Bowel movement evidenced during physical exam, colored dark brown. Irritated skin noticed in perianal area with signs of bleeding. Follow-up iron studies. Continue to monitor H&H q.4h. Protonix 40 mg IV b.i.d. Transfuse if hemoglobin levels dropped below seven. Consult GI in the morning. Acute kidney injury likely secondary to renal tubular stasis: Creatinine 1.78, GFR 38, BUN/creatinine ratio 25.8. Follow-up urine lytes. NS at 80 mL/hour. The patient is hypovolemic. Obstructive sleep apnea: The patient is currently on BiPAP. Diabetes mellitus: Glucose levels 137. Hemoglobin A1c on 12/04/2024: 5.9. Hyperglycemia/hypoglycemia protocol in place. Wound ulcer: Presence of ulcer at the level of the right foot and right upper abdomen. Follow-up wound culture. Wound care consult. Hypertension: We will hold blood pressure medications due to soft blood pressure. Code status: Full code DVT prophylaxis: SCDs and heparin. Analgesia/sedation: Florence Line/tube: PIV GI prophylaxis: Protonix Nutrition: NPO PT: Ordered Prognosis: Guarded Sepsis Screening Reassessment Date: December 22, 2024 Date of Service: December 22, 2024 Billing Provider: ISABEL SÁNCHEZ MD Common Visit Codes: [id number] INP/OBS CARE(HIGH) ISABEL SÁNCHEZ MD December 22, 2024 13:15
--- NOTE | 2024-12-22 13:58 | RADIOLOGY REPORT ---
CT SCAN CHEST ABDOMEN AND PELVIS WITH CONTRAST CLINICAL HISTORY: sepsis TECHNIQUE: Helical axial images are obtained from the thoracic inlet through the pelvis without intra venous contrast. Coronal and sagittal reformatted images were generated. One or more of the following radiation dose reduction techniques were used for this examination: automated exposure control, adju stment of the mA and/or kV according to patient size, use of iterative reconstruction technique. COMPARISON: None CTDI: 14.08. DLP: 865.76 FINDINGS: CHEST: Enlarged heterogeneous right thyroid lobe with calcifications. Heart size is within normal limits. Mitral and aortic valvular replacement. Heavy atherosclerotic sinai cification of the coronary arteries. The right pulmonary artery measures up to 35 mm in the left pulm onary artery measures up to 32 mm. The pulmonary trunk measures up to 33 mm. No significant mediastinal lymphadenopathy. Small left with trace right-sided pleural effusion and bilateral lower lobe opacities. Bilateral uppe r lobe peripheral pleural thickening and calcification. Right lower lobe pleural thickening. No pneu mothorax. Mild body wall edema. Old fracture deformity of right posterior rib 8th to 12th. Severe degenerative changes of bilateral glenohumeral joints with narrowing of bilateral acromial humeral intervals which may be from chronic rotator cuff injury. 3.3 x 2.5 cm cystic lesion of the left humeral head and nec k. Moderate degenerative changes of the thoracic spine. ABDOMEN AND PELVIS: Cholelithiasis with limited evaluation for pericholecystic edema given Mild mesenteric edema. Liver, spleen, and adrenal glands unremarkable. The pancreas is atrophic with a pancreatic head not well-vis ualized. 1.5 cm right renal exophytic cyst. Small layering density of the right posterior urinary bladder. Ot herwise, kidneys, ureters and mildly distended urinary bladder unremarkable. Prostate is enlarged me asuring 5.4 x 5.8 x 6.5 cm. Moderate to large hiatal hernia. The stomach is unremarkable. No significant distention of the small bowel loops. Appendix is not definitely visualized. Without visualization of the appendix, can not ex clude acute appendicitis. Large amount of fecal material within the cecum and ascending colon with mo derate amount of fecal material and gas within the transverse colon and small amount of fecal materia l and gas within the remainder of the colon. Mild distal rectal wall thickening. Mild mesenteric edema. No evidence of aortic aneurysm. Mild atherosclerotic calcification of the aorta and bilateral iliacs . There is swirling of the mesenteric vessels over the lower abdomen. No significant lymphadenopathy. Body wall edema. Small mesenteric fat containing posterior abdominal wall hernia at the level of the left kidney. [id number] S shaped curvature of the thoracic and lumbar spine. Multilevel severe degenerative changes of the lumbar spine. Diffuse demineralization. Lytic lesion of the superior pos terior vertebral body of S1 versus Schmorl node. Small lytic lesions within the L3 vertebral body. IMPRESSION: Limited noncontrast imaging. Small left with trace right-sided pleural effusions and associated atelectasis. Underlying left lowe r lobe pneumonia can not be excluded. Right lower lobe pleural thickening with bilateral upper lobe pleural thickening and pleural calcific ations. Correlate for Possible prior exposure to asbestosis. Dilatation of the pulmonary trunk and bilateral pulmonary arteries. Correlate for pulmonary arterial hypertension. Mild mesenteric edema limiting evaluation for inflammatory process. Body wall edema. Mild distal rectal wall thickening which may be due to inadequate distention proctitis/ neoplasm not excluded. Cholelithiasis with limited evaluation for pericholecystic edema given Mild mesenteric edema. If ther e is concern for acute cholecystitis, ultrasound should be considered for further evaluation. Moderate to large hiatal hernia. Enlarged prostate. Recommend correlation with PSA. Small layering density of the right posterior urinary bladder which may represent calculi . Additional findings as above.
[2024-12-22 14:02] LABS: CREATINE KINASE 545 U/L (39-308); PHOSPHORUS 4.1 MG/DL (2.3-4.5); PRO BRAIN NATRIURETIC PEPTIDE 4467 PG/ML (0-450)
--- NOTE | 2024-12-22 14:51 | CONSULTATION REPORT ---
History of Present Illness Providers to CC ~ Reason for Admit\Admit Dx: Cardiology consultation Refering MD: Dr. De Jesus History of Present Illness This is an 84-year-old gentleman who has past medical history significant for hypertension, severe aortic stenosis status post TAVR August 2022, sleep apnea and multiple sclerosis. Followed by Dr. Petersen as an outpatient. Presented as a transfer from [facility] secondary to sepsis. Given Gram- positive bacteremia there was concern for aortic valve endocarditis. TTE was completed that reveals TAVR valve well seated. No aortic insufficiency. No vegetation. Cardiology consultation was requested to rule out endocarditis. Patient is confused and unable to answer questions appropriately about HPI. HPI information was obtained from medical records. Patient was seen at [facility]. He has a right hip wound which was complicated by bacteremia and admitted for IV antibiotics. He had an MRI of the hip which showed concern for osteomyelitis. Also had UTI. Allergies: Coded Allergies: Sulfa (Sulfonamide Antibiotics) (Unverified Allergy, Intermediate, HIVES, 10/23/21) adhesive (Unverified Allergy, Mild, SKIN IRRITATION, 05/22/21) Uncoded Allergies: ANTIHISTAMINES (Allergy, Mild, SKIN IRRITATION, 05/22/21) Home Medications Home Medications Active Reported Potassium (Potassium Gluconate) 99 Mg Tablet 1 Tab PO DAILY Vitamin B-12 (Cyanocobalamin) 100 Mcg Tablet 1 Tab PO DAILY Eye Drops (Tetrahydrz/Dext 70/Peg 400/Pvp) 15 Ml Drops 1 Drop EACHEYE DAILY Anti-Diarrheal (Loperamide HCl) 2 Mg Tablet 2 Mg PO DAILY PRN Baclofen 20 Mg Tablet 1 Tab PO BID Pramipexole Dihydrochloride (Pramipexole Di-Hcl) 0.5 Mg Tablet 1 Tab PO TID Carbidopa-Levodopa 25-250 Tab (Carbidopa/Levodopa) 1 Each Tablet 1 Tab PO BID Zocor* (Simvastatin) 5 Mg Tablet 1 Tab PO HS Past Medical History Medical History Comment Severe aortic stenosis status post TAVR Hypertension Multiple sclerosis Obstructive sleep apnea Past Surgical History Surgical History Comment TAVR valve August 2022 Hernia repair Orthopedic Past Social History Social History Comment Patient denies alcohol. Does not smoke. Lives with his . Physical Exam Last Vital Signs Recorded: RN Vital Signs have been reviewed: Yes, Temperature: 97.5, Source: Temporal, Heart Rate: 94, Respiratory Rate: 17, BP: 122/66, Pulse Oximetry: 92, Weight: 58.700 Physical Exam General: Awake, alert. No apparent distress. Speaking in full sentences. Neck: Supple. Normal range of motion. No JVD Respiratory: Lungs are clear to auscultation bilaterally. No respiratory distress. Chest: Normal shape and size. No accessory muscle use. Cardiovascular: Regular rate and rhythm. S1-S2. No murmur, gallop, rub. Gastrointestinal: Abdomen is soft. Nontender to palpation. Bowel sounds present. Extremities: No lower extremity edema, cyanosis or clubbing. Neurologic: Alert and oriented x4. Nonfocal Psychiatric: Normal mood and affect. Skin: Normal color. Warm and dry. Review of Systems ROS Review of systems negative except documented in HPI. Results Echocardiogram Echocardiogram Preliminary echocardiogram with preserved LVEF. TAVR valve is well seated. No AI. No vegetation Diagram Lab Result Diagram: 12/22/24 0358 12/22/24 0358 Assessment/Plan Additional Plan This is an 84-year-old male who presented secondary to sepsis. The following is his problem list: Bacteremia Gram-positive with Streptococcus species. Cardiology consult to rule out endocarditis prior to echocardiogram being performed. TTE with no significant valvular heart disease. TAVR valve well seated. No vegetation seen. 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 Continued outpatient follow up with his primary wind turbine machinist, Dr. Petersen. Recommend dental prophylaxis for life. Supervising MD Supervising Physician: FAYE Thompson NP December 22, 2024 14:51
--- NOTE | 2024-12-22 16:38 | CARDIOLOGY REPORT ---
APPROVED REPORT EXAM: Comprehensive 2D, Doppler, and color-flow Echocardiogram. Patient Location: [facility] Blood Pressure: 122/66 mmHg Heart Rate: 88 bpm Rhythm: Sinus Indications Rule Out Endocarditis Hypertension 26 mm Koroma Ebenezer 3 Ultra RESILIA Bioprosthetic TAVR MALTED MILK MASHER: Meg Beauchamp MD [facility] ECHO: 10/03/22, [facility], JT, EF: 65; AV GRAD: ; PKV: 2.48 2D Dimensions IVSd 1.2 (0.7-1.1cm) LVDd 4.1 cm PWd 1.1 (0.7-1.1cm) IVSs 1.3 (0.8-1.2cm) LVDs 3.2 (2.5-4.0cm) PWs 1.6 (0.8-1.2cm) LVOT Diameter 2.60 (1.8-2.4cm) LVEF(%) 43.5 (>50%) IVC 17.40 mmFS (%) 21.2 % SV 32.2 ml CO 2.8 L/min M-Mode Dimensions Left Atrium(MM) 4.32 (2.5-4.0cm) Aortic Root 2.34 (2.2-3.7cm) Aortic Cusp Exc 0.99 (1.5-2.0cm) MV EPSS 2.0 (<0.5cm) Aortic Valve AoV Peak Ousmane. 264.3 cm/s AoV VTI 45.3 cm AO Peak GR. 27.9 mmHg AO Mean GR. 18 mmHg LVOT VTI 21.04 cm LVOT Peak Ousmane. 104.6 cm/s DUSTY(VTI)/BSA 2.47 cm2/m2 DUSTY (VTI) 2.47 cm2 Mitral Valve MV E Velocity 62.6 cm/s MV Peak Gr. 8 mmHg MV DECEL TIME 164 ms MV A Velocity 136.3 cm/s MV Mean Gr. 2 mmHg MV PHT 72 ms E/A Ratio 0.5 MVA (PHT) 3.06 cm2 MV MIof072.4 cm/sMV VMean68.9 cm/s MVA VTI3.33 cm2MV VTI33.6 cm TDI Lateral E' P. V7.29 cm/s E/Lateral E' 8.6 Tricuspid Valve TR P. Velocity 246 cm/s RAP ESTIMATE 10 mmHg TR Peak Gr. 24 mmHg RVSP 34 mmHg LEFT VENTRICLE The left ventricle is normal size with mild proximal septal thickening. Overall systolic function is low normal. LVEF is 50-55%. RIGHT VENTRICLE RV is normal size and function. ATRIA Left atrium is mildly dilated. AORTIC VALVE 26 mm Koroma Ebenezer 3 Ultra Resilia bioprosthetic TAVR appears well seated with normal function. DUSTY is measured at 2.47 cmsq. Peak / mean gradients of 28 / 18 mmHG. Peak velocity is measured at 2.64 m /sec. No insufficiency. No vegetation seen. MITRAL VALVE Mitral valve leaflets are thickened with severe mitral annular calcification. Mild stenosis with grad ients of 8 / 2 mmHg. Mild regurgitation. No vegetation seen. TRICUSPID VALVE The tricuspid valve is normal in structure with trace regurgitation. No vegetation seen. PULMONIC VALVE Pulmonic valve is grossly normal in structure with physiologic insufficiency. No vegetation seen. GREAT VESSELS The aortic root is normal in size. The IVC is normal in size and collapses >50% with inspiration. PERICARDIUM Normal pericardium. No effusion. Other Information Study Quality: Adequate Conclusion The left ventricle is normal size with mild proximal septal thickening. Overall systolic function is low normal. LVEF is 50-55%. RV is normal size and function. Left atrium is mildly dilated. 26 mm Koroma Ebenezer 3 Ultra Resilia bioprosthetic TAVR appears well seated with normal function. A VA is measured at 2.47 cmsq. Peak / mean gradients of 28 / 18 mmHG. Peak velocity is measured at 2. 64 m/sec. No insufficiency. No vegetation seen. Mitral valve leaflets are thickened with severe mitral annular calcification. Mild stenosis with gra dients of 8 / 2 mmHg. Mild regurgitation. No vegetation seen. The tricuspid valve is normal in structure with trace regurgitation. No vegetation seen. Pulmonic valve is grossly normal in structure with physiologic insufficiency. No vegetation seen. Normal pericardium. No effusion.
[2024-12-22] MEDS: JUVEN Smoothie Arginine/Glut./Ca2+Bmb (Juven 19.3pkt) 240ml cup PO SCH (18:00)
[2024-12-23 02:00] VITALS: BP 113/59; PULSE 88; RESP 16; TEMP 97.3; O2SAT 95
[2024-12-23 06:00] VITALS: BP 99/59; PULSE 86; RESP 12; TEMP 97.2; O2SAT 94
[2024-12-23 06:48] LABS: BASOPHILS # (AUTO) 0.1 X10'3 (0-0.2); BASOPHILS % (AUTO) 0.9 % (0-1); EOSINOPHILS # (AUTO) 0.3 X10'3 (0-0.9); HEMATOCRIT 26.3 % (42.0-52.0); HEMOGLOBIN 8.4 g/dl (14.0-17.9); LYMPHOCYTES # (AUTO) 0.6 X10'3 (1.1-4.8); LYMPHOCYTES % (AUTO) 7.6 % (21-51); MEAN CORPUSCULAR HGB CONC 32.1 g/dL (33.0-36.5); MEAN CORPUSCULAR VOLUME 87.3 FL (78-98); MEAN PLATELET VOLUME 6.8 FL (7.4-10.4); MONOCYTES # (AUTO) 0.4 X10'3 (0-0.9); MONOCYTES % (AUTO) 5.1 % (2-12); NEUTROPHILS # (AUTO) 6.6 X10'3 (1.8-7.7); NEUTROPHILS % (AUTO) 82.4 % (42-75); PLATELET COUNT 288 X10'3 (140-440); RED BLOOD COUNT 3.01 X10'6 (4.70-6.10); RED CELL DISTRIBUTION WIDTH 15.2 % (11.5-14.5)
[2024-12-23 07:05] LABS: ALANINE AMINOTRANSFERASE 6 U/L (12-78); ALBUMIN 1.9 G/DL (3.4-5.0); ALBUMIN/GLOBULIN RATIO 0.6 (1.1-1.5); ALKALINE PHOSPHATASE 88 IU/L (46-116); ANION GAP 5 (8-16); ASPARTATE AMINO TRANSFERASE 30 U/L (10-37); BILIRUBIN,TOTAL 0.4 MG/DL (0.1-1.0); BLOOD UREA NITROGEN 34 MG/DL (7-18); BUN/CREATININE RATIO 27.9 (10.0-20.0); CALCIUM 8.1 MG/DL (8.5-10.1); CHLORIDE 110 MMOL/L (99-107); CHOL/HDL RATIO 3.7 (0.00-4.99); CHOLESTEROL 130 MG/DL (0-200); CREATININE 1.22 MG/DL (0.60-1.10); GLUCOSE 92 MG/DL (70-104); HDL CHOLESTEROL 35 MG/DL (35-60); LDL CHOLESTEROL 76 MG/DL (50-100); MAGNESIUM 2.3 MG/DL (1.5-2.4); POTASSIUM 3.8 MMOL/L (3.5-5.1); SODIUM 145 MMOL/L (135-145); TOTAL CARBON DIOXIDE 29.8 MMOL/L (24-32); TOTAL PROTEIN 5.3 G/DL (6.4-8.2); TRIGLYCERIDES 109 MG/DL (20-135); eCRCL 37 ML/MIN; eGFR 57 ML/MIN
[2024-12-23 08:00] VITALS: RESP 12; O2SAT 94
[2024-12-23 11:00] VITALS: BP 129/66; PULSE 83; RESP 12; TEMP 97; O2SAT 94
[2024-12-23] MEDS: CefTRIAXone 2gm/D5W 50ml BAG 50 ML IV SCH (11:13)
[2024-12-23] MEDS ORDERED: acetaminophen 325mg tablet PO PRN (11:30)
--- NOTE | 2024-12-23 17:30 | PROGRESS NOTE ---
Daily Progress Note Providers to CC Spoke with the family and patient both of the agreed to have patient DNR comfort care only, comfort care order initiated ~ Central Line/PICC still needed: No Thompson-Non Protocol Thompson Indications Met/Not Met: F/C Indications Not Met Antibiotic Timeout Antibiotic Ordered?: No MRSA Education MRSA Education Provided to pt: No Subjective As above Objective Vital Signs Date Time Temp Pulse Resp B/P (MAP) Pulse Ox O2 Delivery O2 Flow Rate FiO2 12/23/24 11:00 97.0 83 12 129/66 (87) 94 Room Air Vital signs, stable ,afebrile. Pulse Oximetry reflects adequate oxygenation. General: well developed, well nourished. Awake , alert, and oriented x4, resting comfortably in the bed, in no acute distress . Skin: Warm, dry, no pallor, no rash or petechiae. HEENT: Atraumatic, normocephalic, EOMI, anicteric sclera B; pink conjunctiva; PERRLA, normal oropharynx, moist oral and nasal mucosa. Tympanic membrane , nose , throat clear. Neck: Trachea midline. Supple, full range of motion, no JVD, bruit , hepatojugular reflex , lymphadenopathy or masses, or other lesions Cardiac: Regular rhythm, regular rate no murmurs, rubs, or gallops. Normal S1 and S2, no S3 noticed. PMI is normal. Respiratory: Equal breath sounds bilaterally, no tachypnea; lungs clear to auscultation bilaterally, no wheezing ,rub or rales, or crackles. Chest wall is symmetric and without deformity. No signs of trauma. Chest wall is nontender. No signs of respiratory distress. Resonance is normal upon percussion bilaterally. Gastrointestinal: Abdomen symmetric, non-distended, soft, non-tender, normal bowel sounds x4 quadrant, normoactive, no hepatosplenomegaly , no masses , no bruit, no flank pain bilaterally. No voluntary guarding, rebound, or rigidity. No tenderness to percussion. No pulsatile masses. Equal femoral pulses. No Leiva's sign or McBurney point tenderness. Back; no CVA tenderness bilaterally, no deformities. Neck and back are without deformity as well. No tenderness noted on palpation of the spinous processes. Spinous processes are midline. Cervical, thoracic, and lumbar paraspinal muscles are not tender and are without spasm. : normal external genitalia, without lesions, swelling, masses or tenderness. Musculoskeletal: Extremities, normal range of motion, non-tender, muscle strength 5/5 x 4. Negative Homans signs bilaterally on lower extremity. Distal pulses full symmetrical, no clubbing, cyanosis , edema. Neurological: Speech is clear, alert, and oriented x 4. No motor or sensory deficit, deep tendon reflexes normal, cerebellar intact. Cranial nerves II-XII intact. Psych: Alert and or appropriate, normal affect. Vascular: Good distal pulses, which are equal x4; capillary refill less than 2 seconds. Lymphatic, no lymphadenopathy. Result Diagram: 12/23/2462312/23/24623 Problem\Assessment\Plan Assessment and plan: 68-year-old male patient came to the hospital with chief complaint of shortness of breath, associated chest pain. Acute on chronic hypoxemic respiratory failure: Acute exacerbation of COPD: Noncompliance: Family inpatient decided to have patient today DNR comfort care only, comfort care order initiated The patient came to the hospital with chief complaint of shortness of breath. The patient is actively smoking cigarettes and marijuana. Echocardiogram on 12/05/2024: Dilated LV size and mildly reduced function. Moderate concentric hypertrophy. Multisegmental wall motion abnormalities noted. LVEF is 50-55%. RV is mildly dilated in size with normal function. Left atrium is moderately dilated. Trileaflet AV appears mildly sclerotic without stenosis or insufficiency. Moderate MV annular calcification (especially posteriorly) without significant stenosis. Moderate regurgitation. TV appears structurally normal with trace regurgitation. Normal pericardium. No effusion. Follow-up lipid panel. Troponin levels [id number]. The patient is currently on BiPAP. Methylprednisolone 125 mg once. Methylprednisolone 60 mg IV t.i.d. The patient received ceftriaxone at the other facility. Second dose of ceftriaxone 1 g tomorrow. Zithromax 500 mg IV daily. Culturelle 34309 mmu b.i.d. DuoNebs q.2h p.r.n. DuoNebs q.4h scheduled. NSTEMI: The patient also complained of chest pain, pressure type, radiation to the left upper arm. The patient was admitted one month ago with similar symptoms. At that time the patient declined coronary angiogram. Currently the patient willing to undergo the procedure. Troponin levels: [id number]. Aspirin 81 mg daily. Atorvastatin 80 mg daily. Carvedilol 3.125 mg b.i.d. Heparin drip. Cardiology consult in a.m. S/P TAVR, r/o endocarditis Normocytic hypochromic anemia: Possible GI bleed: Awaiting placement to hospice care Acute kidney injury likely secondary to renal tubular stasis: Creatinine 1.78, GFR 38, BUN/creatinine ratio 25.8. Follow-up urine lytes. NS at 80 mL/hour. The patient is hypovolemic. Obstructive sleep apnea: The patient is currently on BiPAP. Diabetes mellitus: Glucose levels 137. Hemoglobin A1c on 12/04/2024: 5.9. Hyperglycemia/hypoglycemia protocol in place. Wound ulcer: Presence of ulcer at the level of the right foot and right upper abdomen. Follow-up wound culture. Wound care consult. Hypertension: We will hold blood pressure medications due to soft blood pressure. Disposition, awaiting patient discharged to hospice care , DNR, comfort care only Sepsis Screening Reassessment Date: December 23, 2024 Date of Service: December 23, 2024 Billing Provider: ISABEL SÁNCHEZ MD Common Visit Codes: [id number] INP/OBS CARE(HIGH) ISABEL SÁNCHEZ MD December 23, 2024 17:30
[2024-12-23 18:00] VITALS: BP 126/62; PULSE 102; RESP 15; TEMP 97.5; O2SAT 88
[2024-12-23] MEDS: sennosides/docusate sodium tablet PO SCH (19:14)
[2024-12-23] MEDS: docusate sod 100mg capsule PO SCH (19:15)
[2024-12-24] MEDS: morphine 10mg/ml inj. IV PRN (00:54)
[2024-12-24 06:57] LABS: ALANINE AMINOTRANSFERASE 6 U/L (12-78); ALBUMIN 2.1 G/DL (3.4-5.0); ALBUMIN/GLOBULIN RATIO 0.6 (1.1-1.5); ALKALINE PHOSPHATASE 100 IU/L (46-116); ANION GAP 6 (8-16); ASPARTATE AMINO TRANSFERASE 25 U/L (10-37); BILIRUBIN,TOTAL 0.4 MG/DL (0.1-1.0); BLOOD UREA NITROGEN 33 MG/DL (7-18); CALCIUM 8.2 MG/DL (8.5-10.1); CHLORIDE 108 MMOL/L (99-107); CREATININE 0.97 MG/DL (0.60-1.10); GLUCOSE 94 MG/DL (70-104); MAGNESIUM 2.4 MG/DL (1.5-2.4); POTASSIUM 3.8 MMOL/L (3.5-5.1); SODIUM 143 MMOL/L (135-145); TOTAL CARBON DIOXIDE 28.8 MMOL/L (24-32); TOTAL PROTEIN 5.7 G/DL (6.4-8.2); eCRCL 47 ML/MIN; eGFR 74 ML/MIN
[2024-12-24 07:00] VITALS: BP 97/43; PULSE 67; RESP 16; TEMP 97.1; O2SAT 92
[2024-12-24] MEDS: LORazepam 2 mg/ml vial IV PRN (09:23)
[2024-12-24 12:30] VITALS: RESP 16
[2024-12-24 18:00] VITALS: BP 118/70; PULSE 101; RESP 23; TEMP 98.6; O2SAT 92
--- NOTE | 2024-12-24 18:01 | PROGRESS NOTE ---
Daily Progress Note Providers to CC ~ no new complaint today resting comfortably in the bed Central Line/PICC still needed: No Thompson-Non Protocol Thompson Indications Met/Not Met: F/C Indications Not Met Antibiotic Timeout Antibiotic Ordered?: No MRSA Education MRSA Education Provided to pt: No Subjective As above Objective Vital Signs Date Time Temp Pulse Resp B/P (MAP) Pulse Ox O2 Delivery O2 Flow Rate FiO2 12/24/24 12:30 16 Room Air 12/24/24 07:00 97.1 67 97/43 (61) 92 Vital signs, stable ,afebrile. Pulse Oximetry reflects adequate oxygenation. General: well developed, well nourished. Awake , alert, and oriented x4, resting comfortably in the bed, in no acute distress . Skin: Warm, dry, no pallor, no rash or petechiae. HEENT: Atraumatic, normocephalic, EOMI, anicteric sclera B; pink conjunctiva; PERRLA, normal oropharynx, moist oral and nasal mucosa. Tympanic membrane , nose , throat clear. Neck: Trachea midline. Supple, full range of motion, no JVD, bruit , hepatojugular reflex , lymphadenopathy or masses, or other lesions Cardiac: Regular rhythm, regular rate no murmurs, rubs, or gallops. Normal S1 and S2, no S3 noticed. PMI is normal. Respiratory: Equal breath sounds bilaterally, no tachypnea; lungs clear to auscultation bilaterally, no wheezing ,rub or rales, or crackles. Chest wall is symmetric and without deformity. No signs of trauma. Chest wall is nontender. No signs of respiratory distress. Resonance is normal upon percussion bilaterally. Gastrointestinal: Abdomen symmetric, non-distended, soft, non-tender, normal bowel sounds x4 quadrant, normoactive, no hepatosplenomegaly , no masses , no bruit, no flank pain bilaterally. No voluntary guarding, rebound, or rigidity. No tenderness to percussion. No pulsatile masses. Equal femoral pulses. No Leiva's sign or McBurney point tenderness. Back; no CVA tenderness bilaterally, no deformities. Neck and back are without deformity as well. No tenderness noted on palpation of the spinous processes. Spinous processes are midline. Cervical, thoracic, and lumbar paraspinal muscles are not tender and are without spasm. : normal external genitalia, without lesions, swelling, masses or tenderness. Musculoskeletal: Extremities, normal range of motion, non-tender, muscle strength 5/5 x 4. Negative Homans signs bilaterally on lower extremity. Distal pulses full symmetrical, no clubbing, cyanosis , edema. Neurological: Speech is clear, alert, and oriented x 4. No motor or sensory deficit, deep tendon reflexes normal, cerebellar intact. Cranial nerves II-XII intact. Psych: Alert and or appropriate, normal affect. Vascular: Good distal pulses, which are equal x4; capillary refill less than 2 seconds. Lymphatic, no lymphadenopathy. Result Diagram: 12/23/2424 12/24/2415 Problem\Assessment\Plan Assessment and plan: 68-year-old male patient came to the hospital with chief complaint of shortness of breath, associated chest pain. Acute on chronic hypoxemic respiratory failure: Acute exacerbation of COPD: Noncompliance: Family inpatient decided to have patient today DNR comfort care only, comfort care order initiated The patient came to the hospital with chief complaint of shortness of breath. The patient is actively smoking cigarettes and marijuana. Echocardiogram on 12/05/2024: Dilated LV size and mildly reduced function. Moderate concentric hypertrophy. Multisegmental wall motion abnormalities noted. LVEF is 50-55%. RV is mildly dilated in size with normal function. Left atrium is moderately dilated. Trileaflet AV appears mildly sclerotic without stenosis or insufficiency. Moderate MV annular calcification (especially posteriorly) without significant stenosis. Moderate regurgitation. TV appears structurally normal with trace regurgitation. Normal pericardium. No effusion. Follow-up lipid panel. Troponin levels [id number]. The patient is currently on BiPAP. Methylprednisolone 125 mg once. Methylprednisolone 60 mg IV t.i.d. The patient received ceftriaxone at the other facility. Second dose of ceftriaxone 1 g tomorrow. Zithromax 500 mg IV daily. Culturelle 28374 mmu b.i.d. DuoNebs q.2h p.r.n. DuoNebs q.4h scheduled. NSTEMI: The patient also complained of chest pain, pressure type, radiation to the left upper arm. The patient was admitted one month ago with similar symptoms. At that time the patient declined coronary angiogram. Currently the patient willing to undergo the procedure. Troponin levels: [id number]. Aspirin 81 mg daily. Atorvastatin 80 mg daily. Carvedilol 3.125 mg b.i.d. Heparin drip. Cardiology consult in a.m. S/P TAVR, r/o endocarditis Normocytic hypochromic anemia: Possible GI bleed: Awaiting placement to hospice care Acute kidney injury likely secondary to renal tubular stasis: Creatinine 1.78, GFR 38, BUN/creatinine ratio 25.8. Follow-up urine lytes. NS at 80 mL/hour. The patient is hypovolemic. Obstructive sleep apnea: The patient is currently on BiPAP. Diabetes mellitus: Glucose levels 137. Hemoglobin A1c on 12/04/2024: 5.9. Hyperglycemia/hypoglycemia protocol in place. Wound ulcer: Presence of ulcer at the level of the right foot and right upper abdomen. Follow-up wound culture. Wound care consult. Hypertension: We will hold blood pressure medications due to soft blood pressure. Disposition, awaiting patient discharged to hospice care , DNR, comfort care only Date of Service: December 24, 2024 Billing Provider: ISABEL SÁNCHEZ MD Common Visit Codes: [id number] INP/OBS CARE(MOD) ISABEL SÁNCHEZ MD December 24, 2024 18:01
[2024-12-24] MEDS: HYDROcodone/acetaminophen 10/325mg tab PO PRN (21:11)
[2024-12-25] MEDS: morphine 10mg/0.5ml (conc. morphine) oral syringe PO PRN ×2 (00:58→02:52)
--- NOTE | 2024-12-25 06:33 | CONSULTATION ---
DATE OF CONSULTATION: 12/23/2024 DICTATING PHYSICIAN: Logan Oden MD REASON FOR CONSULTATION: I am seeing the patient at the request of Dr. De Jesus for evaluation of possible endocarditis. HISTORY OF PRESENT ILLNESS: The patient is an 84-year-old male with reported history of multiple sclerosis, although he is on some medications for Parkinson's disease, who initially presented to [facility] with sepsis including an elevated white blood cell count. He did have cultures drawn on 12/18/2024 that were positive for Streptococcus mutans. He was apparently treated with vancomycin early on but then changed over to Zosyn. He is known to have a bioprosthetic aortic valve related to transcatheter aortic valve implantation in the past. I believe that was performed at [facility] in 08/2022. He did have a transthoracic study that was apparently unrevealing, but he was sent to this facility for a transesophageal echocardiogram. He has been seen by Cardiology who does not feel that he needs a transesophageal echocardiogram. He does have a chronic open wound at his right hip that he states has been present for years. He may have had some additional imaging done at [facility]. He is debilitated at baseline and he states that he does not ambulate. PAST MEDICAL HISTORY: * Aortic stenosis. * Neurological disease that he describes as multiple sclerosis. Once again, he is on some medications for Parkinson's disease. * Dyslipidemia. PAST SURGICAL HISTORY: Transcatheter aortic valve implantation a little over 2 years ago. ALLERGIES: SULFA. MEDICATIONS: * Zosyn. * Subcutaneous heparin. * Colace. * Lactobacillus. FAMILY HISTORY: Noncontributory. SOCIAL HISTORY: He states that he is and lives in [place] with his . He does not smoke or drink alcohol. PHYSICAL EXAMINATION: VITAL SIGNS: He is afebrile with stable vital signs. GENERAL: He is a frail-appearing elderly male lying in bed on his right side. HEENT: Sclerae anicteric. Mouth is clear with poor dentition. NECK: Supple. LUNGS: Clear to auscultation bilaterally. HEART: Regular rate and rhythm and I was unable to appreciate a significant murmur. ABDOMEN: Soft without significant tenderness. EXTREMITIES: He apparently has a wound at his right hip that I was unable to visualize at the time of my exam. NEUROLOGIC: He does move all four extremities, although his movement at his lower extremities seems to be more limited. LABORATORY DATA: His white blood cell count is 8,000, hemoglobin 8.4, platelets 288,000. His ESR is 63. His creatinine is 1.2. Procalcitonin is 0.24. Repeat blood cultures were negative on the 12/20/2024 at [facility]. Transthoracic echo here shows an ejection fraction of 50% to 55%. There was no vegetation seen at the bioprosthetic aortic valve and there is no aortic insufficiency. No vegetations were seen involving the other valves. IMPRESSION: * Streptococcal sepsis due to Streptococcus mutans. He does have poor dentition and I suspect this is the source for his bloodstream infection. His chronic right hip wound would be another possible source. Regardless, this organism is associated with infective endocarditis and he does have a bioprosthetic valve in place. That valve appears to be functioning well, but it may be reasonable to provide him with an empiric course of therapy. * History of aortic stenosis status post transcatheter aortic valve implantation in 08/2022. * Multiple sclerosis with significant debility. 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 RECOMMENDATIONS: Zosyn will be changed over to ceftriaxone 2 g daily. I would recommend a 6-week course of ceftriaxone to ensure that his valve is treated adequately. I suspect he will need to go to a rehab facility for IV antibiotics and wound care. I will continue to follow the patient closely, and I thank you for allowing me to participate in his care. 80 minutes time spent [id number], review of medical record including labs/cultures/imaging, review of [facility] record, orders and documentation. Logan Oden MD TID: [id number] RECEIPT: [id number] KELLEY/FUENTES ZENDEJAS
[2024-12-25 11:00] VITALS: BP 107/54; PULSE 110; RESP 19; TEMP 97; O2SAT 93
--- NOTE | 2024-12-25 20:03 | DISCHARGE SUMMARY ---
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 Sepsis Chronic kidney disease Status post TAVR Anemia UTI complicated Multiple sclerosis 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 Gait disorder, unable to ambulate independently Hypertension poor control Hospital Course DATE OF ADMISSION: December 22, 2024 DATE OF DISCHARGE: December 2507/2025 Discharge Diagnosis\Comment: Large decubitus, gluteal area and 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 Sepsis Chronic kidney disease Status post TAVR Anemia UTI complicated Multiple sclerosis 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 The patient reports that approximately one week ago he noticed subjective fever reason for which his took him to the hospital. Upon arrival to the other facility the patient was admitted with bacteremia, blood cultures revealed Gram-positive cocci in 2/2 samples, specifically identified as Streptococcus species. Vancomycin was initially started but discontinued once the organism was identified, and the patient was continued on Zosyn. The patient also has a an open wound of right hip, the right hip wound was a significant concern due to potential osteomyelitis prompting an MRI to further evaluate the underlying bone involvement coming back positive for osteomyelitis. The patient also had a urinary tract infection using nine during the at home without chronic Thompson catheter use. Initial urinalysis shows signed of infection, and a urine culture was in process during the admission, the antibiotics administered for bacteremia also covered UTI pathogens. The patient exhibited signs of sepsis including elevated white blood cell count, tachycardia, bacteremia and UTI identified as the possible source. The patient has been followed by as outpatient. Echocardiogram from the time of aortic valve replacement with a prosthetic valve in July 2023 showed an ejection fraction of 55% post surgery. The patient was recommended for lifelong endocarditis prophylaxis, however appears to be non adherent with this regimen. The patient was transferred for further management of possible endocarditis.The patient currently does not walk, he mentioned that he has been using wheelchair for approximately two years, after admission patient was extens ively evaluated and treated finally patient elected to be DNR comfort care only today he will be transferred home hospice care, today on physical exam, Vital signs, stable ,afebrile. Pulse Oximetry reflects adequate oxygenation. General: well developed, well nourished. Awake , alert, and oriented x4, resting comfortably in the bed, in no acute distress . Skin: Warm, dry, no pallor, no rash or petechiae. HEENT: Atraumatic, normocephalic, EOMI, anicteric sclera B; pink conjunctiva; PERRLA, normal oropharynx, moist oral and nasal mucosa. Tympanic membrane , nose , throat clear. Neck: Trachea midline. Supple, full range of motion, no JVD, bruit , hepatojugular reflex , lymphadenopathy or masses, or other lesions Cardiac: Regular rhythm, regular rate no murmurs, rubs, or gallops. Normal S1 and S2, no S3 noticed. PMI is normal. Respiratory: Equal breath sounds bilaterally, no tachypnea; lungs clear to auscultation bilaterally, no wheezing ,rub or rales, or crackles. Chest wall is symmetric and without deformity. No signs of trauma. Chest wall is nontender. No signs of respiratory distress. Resonance is normal upon percussion bilaterally. Gastrointestinal: Abdomen symmetric, non-distended, soft, non-tender, normal bowel sounds x4 quadrant, normoactive, no hepatosplenomegaly , no masses , no bruit, no flank pain bilaterally. No voluntary guarding, rebound, or rigidity. No tenderness to percussion. No pulsatile masses. Equal femoral pulses. No Leiva's sign or McBurney point tenderness. Back; no CVA tenderness bilaterally, no deformities. Neck and back are without deformity as well. No tenderness noted on palpation of the spinous processes. Spinous processes are midline. Cervical, thoracic, and lumbar paraspinal muscles are not tender and are without spasm. : normal external genitalia, without lesions, swelling, masses or tenderness. Musculoskeletal: Extremities, normal range of motion, non-tender, muscle strength 5/5 x 4. Negative Homans signs bilaterally on lower extremity. Distal pulses full symmetrical, no clubbing, cyanosis , edema. Neurological: Speech is clear, alert, and oriented x 4. No motor or sensory deficit, deep tendon reflexes normal, cerebellar intact. Cranial nerves II-XII intact. Psych: Alert and or appropriate, normal affect. Vascular: Good distal pulses, which are equal x4; capillary refill less than 2 seconds. Lymphatic, no lymphadenopathy. *Problems/Diagnosis: (1) S/p TAVR (transcatheter aortic valve replacement), bioprosthetic Status: Acute Total Time Spent on D/C: > 30 Minutes Date of Service: December 25, 2024 Billing Provider: ISABEL SÁNCHEZ MD Common Visit Codes: 72034-XEK/OBS DISCH DAY >30min ISABEL SÁNCHEZ MD December 25, 2024 20:03
== END 2024-12-25 11:15 | disposition hospice, home (50) | DRG 871 ==
LOC: PCU 3S 23:17 → UNDOADMIN 23:17 → PCU 3S 23:18 → UNDOADMIN 12-22 01:21 → SUR 3N 12-24 11:25 → PCU 3S 12-24 11:25 → UNDODISIN 12-25 11:15
PROVIDERS: ADMIT Family Medicine; ATTEND Family Medicine
PROC: BW251ZZ Computerized Tomography (CT Scan) of Chest, Abdomen and Pelvis using Low Osmolar Contrast (ICD-10-PCS; principal; 2024-12-22)
DX: A40.9 Streptococcal sepsis, unspecified (principal); I21.A1 Myocardial infarction type 2; J96.21 Acute and chronic respiratory failure with hypoxia; L89.154 Pressure ulcer of sacral region, stage 4; I33.0 Acute and subacute infective endocarditis; N39.0 Urinary tract infection, site not specified; J44.1 Chronic obstructive pulmonary disease with (acute) exacerbation; N17.9 Acute kidney failure, unspecified; M86.8X8 Other osteomyelitis, other site; E11.69 Type 2 diabetes mellitus with other specified complication; L89.899 Pressure ulcer of other site, unspecified stage; I12.9 Hypertensive chronic kidney disease with stage 1 through stage 4 chronic kidney disease, or unspecified chronic kidney disease; N18.9 Chronic kidney disease, unspecified; G35 Multiple sclerosis; Z51.5 Encounter for palliative care; Z66 Do not resuscitate; Z91.199 Patient's noncompliance with other medical treatment and regimen due to unspecified reason; F17.210 Nicotine dependence, cigarettes, uncomplicated; D50.9 Iron deficiency anemia, unspecified; G47.33 Obstructive sleep apnea (adult) (pediatric); E86.1 Hypovolemia; G20.A1 Parkinson's disease without dyskinesia, without mention of fluctuations; L97.519 Non-pressure chronic ulcer of other part of right foot with unspecified severity; F02.80 Dementia in other diseases classified elsewhere, unspecified severity, without behavioral disturbance, psychotic disturbance, mood disturbance, and anxiety; E11.621 Type 2 diabetes mellitus with foot ulcer; E78.5 Hyperlipidemia, unspecified; B96.89 Other specified bacterial agents as the cause of diseases classified elsewhere; E11.22 Type 2 diabetes mellitus with diabetic chronic kidney disease; L89.219 Pressure ulcer of right hip, unspecified stage; Z95.3 Presence of xenogenic heart valve; Z79.899 Other long term (current) drug therapy; Z79.82 Long term (current) use of aspirin
CPT/HCPCS: 36415; 71250; 74176; 80053; 80061; 82550; 83036; 83540; 83550; 83605; 83735; 83880; 84100; 84145; 84484; 85025; 85651; 86140; 87081; 93306; 97110; 97162; 99285; A4649; A6212; A6213; A6223; A6449; A6590; G0378; J0696; J1644; J2060; J2274; J2543; J7030